=== PATIENT | male | born 1940 | race Caucasian/White ===

== ENCOUNTER 2017-09-15 05:58 | Inpatient (IN) | payer MEDICARE ==
[2017-09-15] MEDS ORDERED: FENTANYL CITRATE INJ/PF 100 MCG/2 ML AMPUL IV ONE (06:46)
--- NOTE | 2017-09-15 07:22 | RADIOLOGY REPORT (SQ) ---
EXAM DESCRIPTION: CT HEAD WITHOUT CLINICAL HISTORY: fall on eliquis COMPARISON: None available TECHNIQUE: Axial CT of the head obtained from the skull apex to the skull base without contrast. FINDINGS: No acute intracranial hemorrhage identified. No mass, mass effect, shift of the midline, abnormal extra-axial fluid collection or CT evidence of acute ischemic change identified. The ventricular system and sulcal spaces are mildly enlarged compatible with mild cerebral atrophy. Scattered areas of hypodensity throughout the supratentorial white matter are nonspecific and may be related to chronic small vessel ischemic change. Regions of encephalomalacia involving the bilateral occipital lobes compatible with remote STONE SPLITTER distribution infarctions. Encephalomalacia involving the left frontal lobe compatible with remote left MCA distribution infarction. Mucosal thickening of the paranasal sinuses. Possible minimal opacities in the mastoid air cells may represent serous or inflammatory debris. No skull fracture identified. Visualized orbits and globes are unremarkable. Atherosclerotic calcification of the intracranial internal carotid arteries. DLP: 1808.77 mGy-cm IMPRESSION: 1. No acute intracranial abnormality by CT criteria. This exam was performed according to our departmental dose-optimization program, which includes automated exposure control, adjustment of the mA and/or kV according to patient size and/or use of iterative reconstruction technique.
--- NOTE | 2017-09-15 07:39 | RADIOLOGY REPORT (SQ) ---
EXAM DESCRIPTION: HIP RIGHT AP/LATERAL CLINICAL HISTORY: fall COMPARISON: None. FINDINGS: Single frontal view of the pelvis and lateral view of the right hip. Acute mildly displaced intertrochanteric fracture of the right femur. Atherosclerotic vascular calcification. Osteopenia. Mild bilateral hip joint space narrowing. IMPRESSION: 1. Acute mildly displaced intertrochanteric fracture of the right femur.
[2017-09-15 07:48] LABS: PARTIAL THROMBOPLASTIN TIME 35.6 SEC (23.5-35.8)
[2017-09-15 07:49] LABS: ABSOLUTE BASOPHILS # (AUTO) 0.1 10^3/uL (0.0-0.2); ABSOLUTE EOSINOPHILS # (AUTO) 0.2 10^3/uL (0.0-0.6); ABSOLUTE LYMPHOCYTES (AUTO) 1.5 10^3/uL (0.5-4.7); ABSOLUTE MONOCYTES (AUTO) 0.8 10^3/uL (0.1-1.4); BASOPHILS % (AUTO) 0.9 % (0-2); EOSINOPHILS % (AUTO) 2.8 % (0-6); HEMATOCRIT 37.1 % (37.9-51.0); HEMOGLOBIN 11.9 g/dL (13.5-17.0); LYMPHOCYTES % (AUTO) 17.4 % (13-45); MEAN CORPUSCULAR HEMOGLOBIN 28.3 pg (27.0-33.4); MEAN CORPUSCULAR HGB CONC 32.1 g/dL (32.0-36.0); MEAN CORPUSCULAR VOLUME 88 fl (80-97); MONOCYTES % (AUTO) 9.1 % (3-13); PLATELET COUNT 277 10^3/uL (150-450); RED BLOOD COUNT 4.21 10^6/uL (4.35-5.55); RED CELL DISTRIBUTION WIDTH 16.5 % (11.5-14.0); SEGMENTED NEUTROPHILS % (AUTO) 69.8 % (42-78); TOTAL CELLS COUNTED % (AUTO) 100 %; WHITE BLOOD COUNT 8.6 10^3/uL (4.0-10.5)
[2017-09-15] MEDS ORDERED: NORMAL SALINE 1000 ML 1,000 ML IV ONE (07:56)
[2017-09-15 07:57] LABS: ALANINE AMINOTRANSFERASE 27 U/L (21-72); ALKALINE PHOSPHATASE 108 U/L (38-126); ANION GAP 9 (5-19); ASPARTATE AMINO TRANSFERASE 21 U/L (17-59); BILIRUBIN,DIRECT 0.4 mg/dL (0.0-0.4); BILIRUBIN,TOTAL 0.6 mg/dL (0.2-1.3); BLOOD UREA NITROGEN 44 mg/dL (7-20); CALCIUM 8.9 mg/dL (8.4-10.2); CARBON DIOXIDE 29 mmol/L (22-30); CHLORIDE 98 mmol/L (98-107); CREATINE KINASE 39 U/L (55-170); GLUCOSE 333 mg/dL (75-110); POTASSIUM 4.6 mmol/L (3.6-5.0); SODIUM 135.6 mmol/L (137-145); TOTAL PROTEIN 5.6 g/dL (6.3-8.2)
--- NOTE | 2017-09-15 08:02 | RADIOLOGY REPORT (SQ) ---
EXAM DESCRIPTION: CHEST SINGLE VIEW CLINICAL HISTORY: preop fall right hip fracture. COMPARISON: None. FINDINGS: Single frontal view of the chest. Atherosclerotic calcification aortic arch. Heart is not enlarged. Low lung volumes. No consolidation, pneumothorax, or pleural effusion. No displaced rib fractures identified. Upper abdominal soft tissues are unremarkable. IMPRESSION: 1. No acute pulmonary process identified.
--- NOTE | 2017-09-15 08:50 | EKG REPORT ---
SEVERITY:- ABNORMAL ECG - SINUS RHYTHM NONSPECIFIC INTRAVENTRICULAR CONDUCTION DELAY BORDERLINE R WAVE PROGRESSION, ANTERIOR LEADS MINIMAL ST DEPRESSION, LATERAL LEADS : Confirmed by: Lata Alvarez MD 15-Sep-2017 08:49:51
--- NOTE | 2017-09-15 08:52 | ER Document Report ---
ED General - General Chief Complaint: Hip Injury Stated Complaint: FALL/HIP INJURY Time Seen by Provider: 09/15/17 06:23 TRAVEL OUTSIDE OF THE [place] IN LAST 30 DAYS: No - HPI Patient complains to provider of: Right hip pain Notes: Patient coming in for evaluation of right hip pain. Patient had a fall today while at home. Patient complaining of right hip pain denies any chest pain abdominal pain unknown head trauma prior to after the fall. Patient resting comfortably patient according family was recently discharged from [facility] and a nursing care facility home. Patient does have a history of atrial fibrillation and is on Eliquis. - Related Data Allergies/Adverse Reactions: No Known Allergies Allergy (Unverified 09/15/17 07:54) Past Medical History - Social History Smoking Status: Unknown if Ever Smoked Family History: Reviewed & Not Pertinent Patient has suicidal ideation: No Patient has homicidal ideation: No Renal/ Medical History: Denies: Hx Peritoneal Dialysis Review of Systems - Review of Systems Constitutional: No symptoms reported EENT: No symptoms reported Cardiovascular: No symptoms reported Respiratory: No symptoms reported Gastrointestinal: No symptoms reported Genitourinary: No symptoms reported Male Genitourinary: No symptoms reported Musculoskeletal: Other - Right hip pain Skin: No symptoms reported Hematologic/Lymphatic: No symptoms reported Neurological/Psychological: No symptoms reported Physical Exam - Vital signs Vitals: Resp Pulse Ox 11 L 96 09/15/17 06:11 09/15/17 06:11 Interpretation: Normal - General General appearance: Appears well, Alert - HEENT Head: Normocephalic, Atraumatic Eyes: Normal Pupils: PERRL - Respiratory Respiratory status: No respiratory distress Chest status: Nontender Breath sounds: Normal Chest palpation: Normal - Cardiovascular Rhythm: Regular Heart sounds: Normal auscultation Murmur: No - Abdominal Inspection: Normal Distension: No distension Bowel sounds: Normal Tenderness: Nontender Organomegaly: No organomegaly - Back Back: Normal, Nontender - Extremities General upper extremity: Normal inspection, Nontender, Normal color, Normal ROM , Normal temperature General lower extremity: Other - Patient was shortening and tenderness to palpation the right greater trochanter. Pulses intact distally. Left leg infected - Neurological Neuro grossly intact: Yes Cognition: Normal Orientation: AAOx4 Roseanna Coma Scale Eye Opening: Spontaneous Roseanna Coma Scale Verbal: Oriented Roseanna Coma Scale Motor: Obeys Commands Roseanna Coma Scale Total: 15 Speech: Normal Motor strength normal: LUE, RUE, LLE, RLE Sensory: Normal - Psychological Associated symptoms: Normal affect, Normal mood - Skin Skin Temperature: Warm Skin Moisture: Dry Skin Color: Normal Course - Re-evaluation Re-evalutation: 09/15/17 15:31 Patient has a intertrochanteric fracture. CT of the head negative. Will admit to the hospital service due to underlying medical issues did discuss with orthopedics corporate relations manager. - Vital Signs Vital signs: Temp Pulse Resp BP Pulse Ox 97.6 F 15 92/64 L 92 09/15/17 06:58 09/15/17 12:06 09/15/17 12:06 09/15/17 12:06 - Laboratory Result Diagrams: 09/15/17 06:00 09/15/17 06:00 Laboratory results interpreted by me: 09/15/17 09/15/17 09/15/17 06:00 06:00 06:00 RBC 4.21 L Hgb 11.9 L Hct 37.1 L RDW 16.5 H PT 16.0 H Sodium 135.6 L BUN 44 H Creatinine 2.59 H Est GFR ( Amer) 29 L Est GFR (Non-Af Amer) 24 L Glucose 333 H POC Glucose Creatine Kinase 39 L Total Protein 5.6 L Albumin 3.0 L 09/15/17 06:52 RBC Hgb Hct RDW PT Sodium BUN Creatinine Est GFR ( Amer) Est GFR (Non-Af Amer) Glucose POC Glucose 327 H Creatine Kinase Total Protein Albumin Discharge - Discharge Clinical Impression: Anticoagulation Closed right hip fracture Qualifiers: Encounter type: initial encounter Qualified Code(s): S72.001A - Fracture of unspecified part of neck of right femur, initial encounter for closed fracture COPD (chronic obstructive pulmonary disease) Qualifiers: COPD type: unspecified COPD Qualified Code(s): J44.9 - Chronic obstructive pulmonary disease, unspecified Condition: Good Disposition: ADMITTED INPATIENT Admitting Provider: [facility] - [facility] Admitted: Telemetry
[2017-09-15] MEDS ORDERED: FENTANYL CITRATE INJ/PF 100 MCG/2 ML AMPUL IV PRN (08:56)
[2017-09-15] MEDS ORDERED: DEXTROSE 50%-WATER 25 GM/50 ML DISP.SYRIN IV PRN ×2 (09:11)
[2017-09-15] MEDS ORDERED: DEXTROSE 40% GEL 15 GM TUBE PO PRN ×2 (09:11)
[2017-09-15] MEDS ORDERED: GLUCAGON,HUMAN RECOMB 1 MG INJ IM PRN (09:11)
[2017-09-15] MEDS: MORPHINE SULFATE 10 MG/ML INJ IV PRN ×2 (10:43→14:55)
[2017-09-15] MEDS: INSULIN LISPRO 100 UNIT/ML 3 ML VIAL SUBCUT PRN ×2 (10:52→23:00)
[2017-09-15] MEDS ORDERED: CYCLOBENZAPRINE HCL 10 MG TABLET PO PRN (11:30)
--- NOTE | 2017-09-15 13:04 | HISTORY AND PHYSICAL E ---
History and Physical NAME: LUIS GODOY : 1940 AGE: 76Y ADMITTED: 09/15/2017 ROOM: ED04 PRIMARY CARE PROVIDER: Diony Thorpe M.D. CHIEF COMPLAINT: Fall and right hip pain. SUBJECTIVE: The patient is a 75-year-old, male with a past medical history of chronic kidney disease as well as atrial fibrillation. The patient presented to the emergency department from his daughter's house with a chief complaint of right hip pain after sustaining a fall. Reportedly, the patient had a fall back in May,, and subsequently did have some form of vertebral fracture associated with this. The patient has had a complicated course with this and was actually discharged from [facility] approximately 3 weeks ago due to falls and complications of this. Subsequently, the patient was discharged to [facility] and the patient was just discharged from [facility] 2 days ago. Reportedly, while the patient was at [facility], he sustained a fall and the patient was noted to be a failure to progress in therapy and the patient was not deemed rehab-able and was discharged to home. The patient's daughter is his full-time caregiver and she stated that she has an alert in place for when the patient gets out of bed, however, last night, the patient scooted to the end of the hospital bed and got up and sustained a fall, falling upon his right hip. The patient did have severe pain in this and once presented to the emergency department, the patient was found to have acute fracture. The case was discussed with Dr. Willams with Orthopedics and the patient has been referred to the hospitalist for admission and management. PAST MEDICAL HISTORY: Is remarkable for: 1. Vertebral fractures. 2. Atrial fibrillation. 3. Chronic anticoagulation. 4. Chronic obstructive pulmonary disease. PAST SURGICAL HISTORY: Includes ventral hernia repair. ALLERGIES: No known drug allergies. HOME MEDICATIONS: Include: 1. Flexeril 5 mg p.o. t.i.d. p.r.n. 2. Apixaban 5 mg p.o. b.i.d. 3. Amiodarone 200 mg p.o. daily. 4. Lipitor 80 mg p.o. daily. 5. Imdur 30 mg p.o. daily. 6. Plavix 75 mg p.o. daily. 7. Hydrocodone/acetaminophen 5/325 1 tablet p.o. q.4 hours p.r.n. 8. Lasix 40 mg p.o. b.i.d. 9. Magnesium oxide 400 mg p.o. daily. 10. Lantus 4 units subcutaneous each evening. 11. Fosinopril 2.5 mg p.o. daily. 12. Mirtazapine 7.5 mg p.o. at bedtime. 13. Potassium chloride 10 mEq p.o. daily. 14. Lidocaine 5% 1 patch topically daily. SOCIAL HISTORY: The patient currently resides at his daughter's house. Her name is Radha Torrez, who may be reached at . She is also his surrogate decision maker. The patient does have a history of tobacco use that equates approximately 60 pack years. No history of alcohol or illicit drug use. FAMILY MEDICAL HISTORY: The patient's mother is alive. She does have dementia. The patient does have a family history of coronary artery disease. The patient does have 2 children, both of which are healthy. The patient is unable to elaborate on his siblings at this time. REVIEW OF SYSTEMS: CONSTITUTIONAL: The patient denies any fevers, chills. No dizziness or loss of appetite. Does admit to lower extremity weakness, at times. INTEGUMENTARY: The patient denies any diaphoresis, rashes or bruising. HEENT: Denies any vision change, hearing loss, nasal drainage or sore throat. No headache. CARDIOVASCULAR SYSTEM: The patient denies any chest pain, edema, or heart palpitations. RESPIRATORY: Denies any shortness of breath, cough, sputum production, or hemoptysis. GASTROINTESTINAL: Denies any nausea, vomiting, diarrhea, abdominal pain, bloating, hematemesis, constipation, melena. No hematochezia. GENITOURINARY: Denies any hematuria, pyuria, or dysuria. MUSCULOSKELETAL: The patient does have chronic back pain and acute, bilateral hip pain. NEUROLOGICAL: No seizures, tremors, loss of consciousness. HEMATOLOGICAL: Denies any edgardo bleeding, easy bruising. ENDOCRINE: Denies any recent weight changes. PSYCHIATRIC: Denies any suicidal or homicidal ideation. The rest of the review of the other organ systems is negative. PHYSICAL EXAMINATION: GENERAL: On examination, the patient is a frail, chronically ill-appearing, 76-year-old male who is awake, alert and oriented to person, place, time, and situation. He is verbal, conversational, and ambulatory. He does not appear to be in any acute distress. VITAL SIGNS: As follows: Temperature is 97.6, pulse 62, respirations 14, blood pressure is 128/63. Oxygen saturation 94% on room air. SKIN: Warm and dry. No rash. He is not diaphoretic. HEENT: Pupils equal, round, reactive to light and accommodation. Conjunctivae pink. Sclera shows no icterus. No mouth lesions. Tongue is midline. NECK: Supple. No JVD. No palpable lymphadenopathy or thyromegaly. CARDIOVASCULAR SYSTEM: Heart is regular. There is no murmur or rub. CHEST: Clear, symmetrical, unlabored. ABDOMEN: Soft, nontender, nondistended. Bowel sounds are present. No palpable organomegaly. BACK: No CVA tenderness or sacral edema. EXTREMITIES: No clubbing, cyanosis, or edema. PSYCHIATRIC: Appropriate affect. Pleasant mood. DIAGNOSTICS: Lab values are as follows: Hematology was obtained on 09/15/2017. WBCs are 8.6, hemoglobin is 11.9, hematocrit is 37.1, platelet count is 277,000. Coagulation obtained on 09/15/2017: PT 20.0, INR 1.2. Chemistry obtained on 09/15/2017: Sodium 135, potassium 4.2, chloride 108, carbon dioxide 29, BUN 44, creatinine 2.59, glucose 335, calcium 8.9. Bilirubin 0.6, AST 21, ALT 27, alkaline phosphatase 108. CK 39, total protein 5.6, albumin 3.0. Hip x-ray obtained on 09/15/2017 reveals acute, mildly displaced, intratrochanteric fracture of the right femur. Head CT obtained on 09/15/2017 reveals no intracranial abnormality. Chest x-ray obtained on 09/15/2017 reveals no acute cardiopulmonary process. IMPRESSION AND PLAN: 1. Closed right hip fracture. Will consult Dr. Willams with Orthopedics. Will hold the patient's anticoagulation as well as aspirin for now and follow. 2. Paroxysmal atrial fibrillation. Patient currently in sinus rhythm. Will continue the patient's amiodarone as well as beta charlotte and follow. 3. Chronic kidney disease, most likely stage 3. It appears the patient is probably around baseline, not exactly certain. Given that I do not have labs for comparison, we will obtain labs from [facility] and follow. 4. Diabetes mellitus type 2. Will place the patient on sliding-scale coverage. Once the patient resumes diet, will start basal dose of insulin, as well. Follow. 5. Deep vein thrombosis prophylaxis. In the interim, will cover the patient with subcutaneous heparin. Do appreciate Orthopedics input with this. DISPOSITION: The patient is a DO NOT RESUSCITATE, DO NOT INTUBATE, as the patient and daughter have both expressed a desire for a natural . Did discuss goals of care and they would like all measures done, however, if the patient should arrest, they would want him to have a natural . The patient will be admitted to Inpatient Telemetry in stable condition as the patient's expected length of stay should surpass 2 midnights. TIME SPENT: On this admission, including assessment, plan, physical examination, patient education, review of records and family meeting, is 45 minutes. DICTATING PHYSICIAN: MEGGAN RIVERA NP [id number] PHY#: [id number] ID: [id number] JOB#: [id number] ACCT: [id number] cc:GARY RAMIREZ M.D. > MTDD
[2017-09-15] MEDS: HYDROCODONE/ACETAMINOPHEN 5-325 MG TABLET PO PRN ×2 (13:31→23:48)
[2017-09-15] MEDS: METOPROLOL SUCCINATE 25 MG TAB.SR.24H PO SCH (13:33)
[2017-09-15] MEDS: AMIODARONE HCL 200 MG TABLET PO SCH (13:33)
[2017-09-15] MEDS ORDERED: HEPARIN SOD (PORCINE) 5,000 UNIT/ML 1 ML SYRINGE SUBCUT SCH (14:00)
[2017-09-15] MEDS ORDERED: HYDROMORPHONE HCL INJ/PF 2 MG/ML AMPULE IV PRN (16:45)
[2017-09-15] MEDS ORDERED: LIDOCAINE 2% URO-JET 5 ML KIT MM PRN (18:23)
[2017-09-15] MEDS: FUROSEMIDE 40 MG TABLET PO SCH (19:28)
[2017-09-15] MEDS: INSULIN GLARGINE,HUM.REC.ANLOG 300 UNIT/3 ML INSULN.PEN SUBCUT SCH (19:29)
[2017-09-15] MEDS: MIRTAZAPINE 15 MG TABLET PO SCH (22:33)
[2017-09-16] MEDS ORDERED: NORMAL SALINE 1000 ML 1,000 ML IV PRN
[2017-09-16] MEDS ORDERED: HYDROMORPHONE HCL INJ/PF 2 MG/ML AMPULE IV PRN (00:54)
[2017-09-16 05:19] LABS: HEMOGLOBIN 11.4 g/dL (13.5-17.0); MEAN CORPUSCULAR HGB CONC 31.6 g/dL (32.0-36.0); MEAN CORPUSCULAR VOLUME 89 fl (80-97); PLATELET COUNT 307 10^3/uL (150-450); RED BLOOD COUNT 4.06 10^6/uL (4.35-5.55); RED CELL DISTRIBUTION WIDTH 16.1 % (11.5-14.0); WHITE BLOOD COUNT 14.5 10^3/uL (4.0-10.5)
[2017-09-16 05:48] LABS: ANION GAP 13 (5-19); BLOOD UREA NITROGEN 47 mg/dL (7-20); CARBON DIOXIDE 27 mmol/L (22-30); CHLORIDE 98 mmol/L (98-107); GLUCOSE 260 mg/dL (75-110); POTASSIUM 4.6 mmol/L (3.6-5.0); SODIUM 137.6 mmol/L (137-145)
[2017-09-16] MEDS: LISINOPRIL 5 MG TABLET PO SCH (09:59)
[2017-09-16] MEDS ORDERED: (PENDING PHARMACY ID) (Lisinopril [Prinivil 2.5 Mg Tablet] 2.5 MG) PO SCH (10:00)
[2017-09-16] MEDS ORDERED: (PENDING PHARMACY ID) (Potassium Chloride [Klor-Con M10] 10 MEQ) PO SCH (10:00)
[2017-09-16] MEDS: FUROSEMIDE 40 MG TABLET PO SCH ×2 (10:01→22:07)
[2017-09-16] MEDS: INSULIN LISPRO 100 UNIT/ML 3 ML VIAL SUBCUT PRN ×3 (10:01→22:08)
[2017-09-16] MEDS: ISOSORBIDE MONONITRATE 30 MG TAB.ER.24H PO SCH (10:02)
[2017-09-16] MEDS: CYCLOBENZAPRINE HCL 10 MG TABLET PO PRN (10:07)
[2017-09-16] MEDS: MAGNESIUM OXIDE 400 MG TABLET PO SCH (10:08)
[2017-09-16] MEDS: POTASSIUM CHLORIDE 10 MEQ TABLET.SA PO SCH (10:08)
[2017-09-16] MEDS: LIDOCAINE 5% (700 MG) TRANSDERMAL ADH..PATCH TP SCH (13:02)
[2017-09-16] MEDS: MORPHINE SULFATE 10 MG/ML INJ IV PRN (13:10)
--- NOTE | 2017-09-16 13:10 | PDOC CONSULTATION ---
Consultation Consult Date: 09/16/17 Attending physician:: MEGGAN RIVERA Consult reason:: Preop cardiovascular clearance History of Present Illness Admission Date/PCP: 09/15/17 09:43 LINNEA CONTRERAS MD Patient complains of: Right hip pain History of Present Illness: LUIS GODOY is a 76 year old male, who apparently fell and broke his right hip. Patient has known history of coronary artery disease having been evaluated recently at [facility]. Patient was transferred there after sustaining a myocardial infarction on August 08. Subsequently he had a 2D echo and heart catheterization. Patient was felt not a candidate for any coronary intervention. Cardiac catheterization revealed a 60% distal left main blockage, 70-80% proximal LAD blockage and 100% blockage of the right coronary artery. A 2D echo had shown a EF of about 20% without any significant valvular abnormalities but cardiac cath had shown a EF of 40% but echo EF is multiplanar rather than a year from cath. Patient currently not having any chest pains and is noted to be in sinus rhythm without any significant ST-T wave changes. Past Medical History Cardiac Medical History: Reports: Coronary Artery Disease, Myocardial Infarction , Hypertension Past Surgical History Past Surgical History: Reports: Cardiac Catheterization Social History Information Source: Relative Smoking Status: Unknown if Ever Smoked Frequency of Alcohol Use: None Hx Recreational Drug Use: No Drugs: None Hx Prescription Drug Abuse: No - Advance Directive Resuscitation Status: Do Not Resuscitate Surrogate healthcare decision maker:: Patient's son is the surrogate decision-maker Family History Family History: Reviewed & Not Pertinent Parental Family History Reviewed: Yes Children Family History Reviewed: Yes Sibling(s) Family History Reviewed.: Yes Medication/Allergy Home Medications: Amiodarone HCl [Cordarone 200 mg Tablet] 200 mg PO DAILY 09/15/17 Apixaban [Eliquis 5 mg Tablet] 5 mg PO BID 09/15/17 Atorvastatin Calcium [Lipitor 80 mg Tablet] 80 mg PO DAILY 09/15/17 Cyclobenzaprine HCl [Flexeril 10 mg Tablet] 5 mg PO TIDP PRN 09/15/17 Furosemide [Lasix 40 mg Tablet] 40 mg PO BID 09/15/17 Hydrocodone Bit/Acetaminophen [Hydrocodon-Acetaminophen 5-325] 1 each PO Q4HP PRN 09/15/17 Insulin Glargine,Hum.rec.anlog [Lantus Solostar] 4 unit SQ QPM 09/15/17 Isosorbide Mononitrate [Imdur 30 mg Tablet.er] 30 mg PO DAILY 09/15/17 Lidocaine [Lidoderm 5% (700 mg) Transdermal Patch] 1 patch TP DAILY 09/15/17 Lisinopril [Prinivil 2.5 mg Tablet] 2.5 mg PO DAILY 09/15/17 Magnesium Oxide [Mag-Ox 400 mg Tablet] 400 mg PO DAILY 09/15/17 Metoprolol Succinate [Toprol Xl 25 mg Tab.sr] 75 mg PO DAILY 09/15/17 Mirtazapine 7.5 mg PO QHS 09/15/17 Potassium Chloride [Klor-Con M10] 10 meq PO DAILY 09/15/17 Allergies/Adverse Reactions: No Known Allergies Allergy (Unverified 09/15/17 07:54) Review of Systems Review of Systems: Please see history of present illness and past medical history as wall. Constitutional: No fever or chills reported. Head : No recent chronic headaches, recent head injury. Eyes: No recent eye pain, diplopia, redness, discharge, acute visual changes. Ears: No recent chronic ear pain, acute hearing loss, ear discharge. Oral cavity: No recent ulcerations, bleeding, oral cavity discomfort. Neck: No recent acute neck pain reported. Hematologic: No recent easy bruising or bleeding or hematologic malignancy reported. Lymphatic: No recent lymphatic malignancy, chronic lymphadenopathy reported yet Cardiovascular system review: See history of present illness. Respiratory system review: No recent chronic cough, hemoptysis, blood clots in the lungs reported. Gastrointestinal system review: Negative for any recent acute or chronic abdominal pain, hematemesis, melena, recent change in bowel habits. Genitourinary system review: No recent acute or chronic hematuria, flank pain, UTI etc. reported. Skin system review: Negative for any recent abnormal bruising, no rash, no pruritus reported. Neurologic: No prior history of strokes, mini strokes, seizure disorder. Psychologic: No history of major psychosis or major depression reported. Musculoskeletal: Admitted with right hip fracture. Patient has marked general debility.. Endocrine: No recent polyuria, polydipsia, recent heat or cold intolerance. Physical Exam Vital Signs: Temp Pulse Resp BP Pulse Ox 97.6 F 81 16 148/58 H 94 09/16/17 08:33 09/16/17 08:33 09/16/17 08:33 09/16/17 08:33 09/16/17 11:41 Pulse Oximeter Continuous Start: 09/16/17 00: 30 Freq: RTQ4 Status: Active Document 09/16/17 11:41 TPO (Rec: 09/16/17 11:41 TPO [email or web address]) Pulse Oximetry Assessment Oxygen Saturation (92-100) 94 Oxygen Flow Rate (L/min) 6 Oxygen Delivery Method Simple Mask Equipment Usage Equipment in Use Continuous SpO2 Machine # 2 Intake & Output 09/15/17 09/16/17 09/17/17 06:59 06:59 06:59 Intake Total 100 Output Total 1000 Balance -900 Weight 67.676 kg Exam: GENERAL: Patient noted to be thin built, somewhat in pain HEAD: Atraumatic, normocephalic. EYES: Pupils equal round and reactive to light, extraocular movements intact, sclera anicteric, conjunctiva are normal. ENT: TMs normal, nares patent, oropharynx clear without exudates. Moist mucous membranes. No oral ulcerations or bleeding gums noted NECK: supple without lymphadenopathy. Trachea is central. No cervical or axillary lymphadenopathy noted. Carotids are 2+, JVD WNL LUNGS: Respiration seems nonlabored, no significant accessory muscle action noted. Breath sounds clear to auscultation bilaterally and equal noted. No wheezes rales or rhonchi noted. No significant dullness noted on percussion. CHEST: Palpation of the chest wall shows no significant chest wall tenderness. No other significant abnormalities noted. HEART: [place] [employer]OR, No PSH, 1/6 MINNIE aortic area, 1/6 nicolas systolic murmur mitral area, no rubs, no gallops. ABDOMEN: Soft, no significant tenderness appreciated, normoactive bowel sounds. No guarding, no rebound. No rigidity noted . No masses appreciated. EXTREMITIES: Pedal pulses are 1-2+, no calf tenderness noted. No clubbing or cyanosis.trace pedal edema noted NEUROLOGICAL: Focused neurological exam showed to be combative and not able to participate in exam.. PSYCH: Patient noted to be in pain and somewhat combative and not able to participate in this exam.. SKIN: No significant ecchymosis, rash, ulcerations or signs of pruritus noted. MUSCULOSKELETAL EXAM: Right hip fracture findings noted. No other acute joint swelling noted.. Results Laboratory Results: 09/16/17 04:28 09/16/17 04:28 09/16/17 09/16/17 09/16/17 04:28 04:28 04:28 WBC 14.5 H RBC 4.06 L Hgb 11.4 L Hct 36.0 L MCV 89 MCH 28.0 MCHC 31.6 L RDW 16.1 H Plt Count 307 Sodium 137.6 Potassium 4.6 Chloride 98 Carbon Dioxide 27 Anion Gap 13 BUN 47 H Creatinine 2.15 H Est GFR ( Amer) 36 L Est GFR (Non-Af Amer) 30 L Glucose 260 H Calcium 9.0 Blood Type O POSITIVE Antibody Screen NEGATIVE EKG Comments: Shows sinus rhythm, no acute ST-T wave changes noted. Impressions: Hip/Pelvis X-Ray 09/15/17 00:00 IMPRESSION: 1. Acute mildly displaced intertrochanteric fracture of the right femur. Head CT 09/15/17 06:46 IMPRESSION: 1. No acute intracranial abnormality by CT criteria. This exam was performed according to our departmental dose-optimization program, which includes automated exposure control, adjustment of the mA and/or kV according to patient size and/or use of iterative reconstruction technique. Chest X-Ray 09/15/17 07:38 IMPRESSION: 1. No acute pulmonary process identified. Assessment & Plan - Diagnosis (1) Coronary artery disease Qualifiers: Coronary Disease-Associated Artery/Lesion type: [place] artery [place] vs. transplanted heart: [place] heart Associated angina: angina presence unspecified Qualified Code(s): I25.10 - Atherosclerotic heart disease of [place] coronary artery without angina pectoris Is this a current diagnosis for this admission?: Yes (2) Cardiomyopathy Qualifiers: Cardiomyopathy type: ischemic Qualified Code(s): I25.5 - Ischemic cardiomyopathy Is this a current diagnosis for this admission?: Yes (3) COPD (chronic obstructive pulmonary disease) Qualifiers: COPD type: unspecified COPD Qualified Code(s): J44.9 - Chronic obstructive pulmonary disease, unspecified Is this a current diagnosis for this admission?: Yes (4) Closed right hip fracture Qualifiers: Encounter type: initial encounter Qualified Code(s): S72.001A - Fracture of unspecified part of neck of right femur, initial encounter for closed fracture Is this a current diagnosis for this admission?: Yes - Notes Notes: Preop cardiovascular evaluation: Patient will be considered high risk. It seems patient has been turned down by the pile driver operator barge mounted at tertiary care center for any corrective surgery for his CAD. Patient has severe CAD and also severe LV systolic dysfunction. Currently however does not seem to have any acute EKG changes nor in CHF. Therefore surgeons and anesthesia can proceed however there is marked increased risk of decompensation postop and this would need to be explained to the family member. We do not have all the cardiac support that we need in this institution but will be happy to help in noninvasive way. Coronary artery disease: Patient seems to be on a good regimen. Have added Ranexa. Continue all current cardiac meds. May substitute intravenous meds if needed. COPD: Currently is stable continue oxygen supplementation. Recommend DVT prophylaxis, pulmonary toilet etc. We will be happy to discuss options with surgeons and anesthesiologist as well as hospitalist involved. - Time Time Spent: 30 to 50 Minutes Medications reviewed and adjusted accordingly: Yes
[2017-09-16] MEDS: METOPROLOL SUCCINATE 25 MG TAB.SR.24H PO SCH (13:12)
[2017-09-16] MEDS: AMIODARONE HCL 200 MG TABLET PO SCH (13:13)
[2017-09-16] MEDS ORDERED: RANOLAZINE 500 MG TAB.SR.12H PO ONE (14:00)
--- NOTE | 2017-09-16 14:12 | PROGRESS NOTE E ---
Progress Note NAME: LUIS GODOY : 1940 AGE: 76Y DATE: 09/16/2017 ROOM: 409 SUBJECTIVE: The patient is lying in bed. The patient's visit was actually lengthy today. The patient has had some confusion with opiates as well as with what appears to be hospital psychosis, which is distressing understandably to the son. I was notified by Dr. Chun of Anesthesia that there was concern regarding the patient's cardiac function and had recommended echocardiogram. I did discuss this with her that the echocardiogram as well as the cath report from 07/2017 from [facility]. It does appear that the patient has triple vessel disease as well as completely occluded RCA. This was concerning. Therefore, I called and discussed the case with the head of marketing adometry, Dr. Yanes, who did not describe these as critical lesions, stating that the patient was at no higher risk of a procedure at [facility] than he would be for here, and the patient does not appear to be a candidate for any further intervention at this time including revascularization given his acute hip fracture, and recommended proceeding with the procedure. I did call and communicate this with Dr. Chun. Additionally, the patient appears to have collateral flow around the RCA. I did consult Dr. Gunter with Cardiology to help in the postoperative management from a cardiac status. In discussion with Dr. Gunter, does recommend the patient to be made possibly comfort measures after his hip repair. I discussed the patient's risk with both the patient and his son. He is aware that the patient is a very high risk for procedure; however, he is not a candidate for any further cardiac intervention at this time given his overall poor rehab chronicity, as he was just discharged from acute rehab and broke his hip. The patient does not voice any specific concerns at this time other than his pain, which is priority. REVIEW OF SYSTEMS: Rest of review of systems is negative. MEDICATIONS: Medications have been reviewed. OBJECTIVE: GENERAL: The patient is a 76-year-old male who is awake, alert. He is oriented to place but not fully oriented to situation. He is a little confused but definitely oriented to his family. He does not appear to be distressed. VITAL SIGNS ARE FOLLOWS: Temperature is 97.6. Pulse 86. Respirations 14. Blood pressure is 116/63. Oxygen saturation is 90% on 5.5 L nasal cannula. SKIN: Pale. Dry. No rash. He is not diaphoretic. HEENT: Pupils equal, round and reactive to light and accommodation. Conjunctivae are pink. NECK: There is no evidence of JVP. CARDIOVASCULAR SYSTEM: Heart is regular. There is no rub. CHEST: Diminished, symmetrical, unlabored. ABDOMEN: Soft. Nontender. Nondistended. BACK: No CVA tenderness or sacral edema. EXTREMITIES: No clubbing, cyanosis, edema. PSYCHIATRIC: The patient does appear to be in pain. DIAGNOSTICS: Lab values are as follows. Hematology obtained on 09/16/2017: WBCs are 14.5; hemoglobin is 11.4; hematocrit is 36.0; platelet count of 307,000. Chemistry obtained on 09/16/2017: Sodium is 136, potassium 4.6, chloride is 98, carbon dioxide 27. BUN 47, creatinine is 2.15, glucose 260. Calcium is 9.0. IMPRESSION AND PLAN: 1. CLOSED RIGHT HIP FRACTURE. The patient has been seen by Dr. Willams, and the case has been discussed with Dr. Chun of Anesthesia, who has graciously agreed to come speak with the patient and family. Will proceed with surgery when cleared by Anesthesia. 2. PAROXYSMAL ATRIAL FIBRILLATION. The patient is in sinus rhythm. Continue on amiodarone as well as his beta [place]. Follow. 3. CHRONIC KIDNEY DISEASE STAGE 3. The patient's creatinine does appear to be about baseline. I do have labs for comparison from [facility]. 4. DIABETES MELLITUS TYPE 2. Will continue sliding-scale coverage. Once the patient's diet resumes, will start a basal dose of insulin and follow. 5. CORONARY ARTERY DISEASE. The patient does have an ischemic cardiomyopathy with an estimated EF between 20% and 40%, as it is 20% by echo but 40% by stress test. According to Dr. Yanes, these lesions do not appear to be critical, and the patient does have collateral RCA flow. Do appreciate doctor's input on this. I have made the family aware that the patient is at [id number] risk for complication, and his risk of mortality is high regardless due to recent hip fracture. DISPOSITION: The patient is a DO NOT RESUSCITATE, DO NOT INTUBATE as both the patient and his daughter expressed desires for natural . Pending patient's symptomatology and diagnostic findings, will reevaluate in the a.m. TIME SPENT: Time spent on this followup including assessment, plan, physical examination, patient education, review of records, family meeting is 60 minutes. DICTATING PHYSICIAN: MEGGAN RIVERA NP [id number] PHY#: [id number] ID: [id number] JOB#: [id number] ACCT: [id number] cc: > MTDD
[2017-09-16] MEDS ORDERED: CEFAZOLIN INJ 1 GM VIAL ONE (17:09)
[2017-09-16] MEDS ORDERED: PROPOFOL INJ 200 MG/20 ML VIAL IV ONE (18:03)
[2017-09-16] MEDS ORDERED: FENTANYL CITRATE INJ/PF 100 MCG/2 ML AMPUL ONE (18:03)
[2017-09-16] MEDS ORDERED: MIDAZOLAM 2 MG/2 ML INJ ONE (18:03)
[2017-09-16] MEDS ORDERED: BUPIVACAINE HCL 0.5 % INJ/PF 30 ML SDV ONE ×2 (18:19→18:47)
[2017-09-16] MEDS ORDERED: LIDOCAINE 1% INJ-PF (10 MG/ML) 30 ML SDV ONE ×2 (18:19→18:47)
[2017-09-16] MEDS ORDERED: DIPHENHYDRAMINE HCL 50 MG/ML VIAL IV PRN (18:49)
[2017-09-16] MEDS ORDERED: FENTANYL CITRATE INJ/PF 100 MCG/2 ML AMPUL IV PRN (18:49)
--- NOTE | 2017-09-16 19:16 | PDOC CONSULTATION ---
Consultation Consult Date: 09/15/17 Consult reason:: Right hip fracture History of Present Illness Admission Date/PCP: 09/15/17 09:43 LINNEA CONTRERAS MD Patient complains of: Right hip pain status post fall History of Present Illness: 76-year-old gentleman status post fall on . Patient had inability to weight-bear and had gross deformity of the right lower extremity with some shortening and external rotation. Patient was brought by EMS to the hospital for evaluation and x-ray showed the patient had a displaced intertrochanteric hip fracture on the right side. Patient has baseline dementia and part of the history was given by the daughter. Patient has significant comorbidities and is being admitted to hospitalist service for management. Patient denies any numbness or tingling or paresthesias. Denies any previous surgeries or traumas. Denies any other extremity injury. Complains of right groin pain and sharp pain and dull pain. Pain with attempted range of motion. Past Medical History Cardiac Medical History: Reports: Coronary Artery Disease, Myocardial Infarction , Hypertension Past Surgical History Past Surgical History: Reports: Cardiac Catheterization Social History Smoking Status: Unknown if Ever Smoked Frequency of Alcohol Use: None Hx Recreational Drug Use: No Drugs: None Hx Prescription Drug Abuse: No - Advance Directive Resuscitation Status: Do Not Resuscitate Family History Family History: Reviewed & Not Pertinent Parental Family History Reviewed: No Children Family History Reviewed: No Sibling(s) Family History Reviewed.: No Medication/Allergy Home Medications: Amiodarone HCl [Cordarone 200 mg Tablet] 200 mg PO DAILY 09/15/17 Apixaban [Eliquis 5 mg Tablet] 5 mg PO BID 09/15/17 Atorvastatin Calcium [Lipitor 80 mg Tablet] 80 mg PO DAILY 09/15/17 Cyclobenzaprine HCl [Flexeril 10 mg Tablet] 5 mg PO TIDP PRN 09/15/17 Furosemide [Lasix 40 mg Tablet] 40 mg PO BID 09/15/17 Hydrocodone Bit/Acetaminophen [Hydrocodon-Acetaminophen 5-325] 1 each PO Q4HP PRN 09/15/17 Insulin Glargine,Hum.rec.anlog [Lantus Solostar] 4 unit SQ QPM 09/15/17 Isosorbide Mononitrate [Imdur 30 mg Tablet.er] 30 mg PO DAILY 09/15/17 Lidocaine [Lidoderm 5% (700 mg) Transdermal Patch] 1 patch TP DAILY 09/15/17 Lisinopril [Prinivil 2.5 mg Tablet] 2.5 mg PO DAILY 09/15/17 Magnesium Oxide [Mag-Ox 400 mg Tablet] 400 mg PO DAILY 09/15/17 Metoprolol Succinate [Toprol Xl 25 mg Tab.sr] 75 mg PO DAILY 09/15/17 Mirtazapine 7.5 mg PO QHS 09/15/17 Potassium Chloride [Klor-Con M10] 10 meq PO DAILY 09/15/17 Allergies/Adverse Reactions: No Known Allergies Allergy (Unverified 09/15/17 07:54) Review of Systems ROS unobtainable: Due to mental status Physical Exam Vital Signs: Temp Pulse Resp BP Pulse Ox 36.9 C 85 18 121/48 L 94 09/16/17 16:59 09/16/17 16:59 09/16/17 16:59 09/16/17 16:59 09/16/17 17:32 Pulse Oximeter Continuous Start: 09/16/17 00: 30 Freq: RTQ4 Status: Active Document 09/16/17 17:32 TPO (Rec: 09/16/17 17:33 TPO [email or web address]) Pulse Oximetry Assessment Oxygen Saturation (92-100) 94 Oxygen Flow Rate (L/min) 5 Oxygen Delivery Method Nasal Cannula Equipment Usage Equipment in Use Continuous SpO2 Machine # 2 Intake & Output 09/15/17 09/16/17 09/17/17 06:59 06:59 06:59 Intake Total 100 Output Total 1000 400 Balance -900 -400 Weight 67.676 kg General appearance: PRESENT: no acute distress Eye exam: PRESENT: EOMI, PERRLA Ear exam: PRESENT: normal external ear exam Mouth exam: PRESENT: neck supple Neck exam: ABSENT: lymphadenopathy, thyromegaly Respiratory exam: PRESENT: symmetrical, unlabored. ABSENT: accessory muscle use , tachypnea Pulses: PRESENT: normal dorsalis pedis pul Vascular exam: PRESENT: normal capillary refill GI/Abdominal exam: PRESENT: soft. ABSENT: distended, organolmegaly, tenderness Musculoskeletal exam: PRESENT: deformity - Right lower extremity, shortening and externally rotated extremity. Inability to do range of motion second to acute brain pain. Neurological exam: PRESENT: altered, oriented to person Psychiatric exam: PRESENT: appropriate affect, normal mood Results Laboratory Results: 09/16/17 04:28 09/16/17 04:28 09/16/17 09/16/17 09/16/17 04:28 04:28 04:28 WBC 14.5 H RBC 4.06 L Hgb 11.4 L Hct 36.0 L MCV 89 MCH 28.0 MCHC 31.6 L RDW 16.1 H Plt Count 307 Sodium 137.6 Potassium 4.6 Chloride 98 Carbon Dioxide 27 Anion Gap 13 BUN 47 H Creatinine 2.15 H Est GFR ( Amer) 36 L Est GFR (Non-Af Amer) 30 L Glucose 260 H Calcium 9.0 Blood Type O POSITIVE Antibody Screen NEGATIVE Impressions: Hip/Pelvis X-Ray 09/15/17 00:00 IMPRESSION: 1. Acute mildly displaced intertrochanteric fracture of the right femur. Head CT 09/15/17 06:46 IMPRESSION: 1. No acute intracranial abnormality by CT criteria. This exam was performed according to our departmental dose-optimization program, which includes automated exposure control, adjustment of the mA and/or kV according to patient size and/or use of iterative reconstruction technique. Chest X-Ray 09/15/17 07:38 IMPRESSION: 1. No acute pulmonary process identified. Status: Image reviewed by me Assessment & Plan - Diagnosis (1) Closed right hip fracture Qualifiers: Encounter type: initial encounter Qualified Code(s): S72.001A - Fracture of unspecified part of neck of right femur, initial encounter for closed fracture Is this a current diagnosis for this admission?: Yes - Plan Summary Plan Summary: 76-year-old gentleman with displaced right intertrochanteric hip fracture. She will be admitted to medicine. Will require clearance. Meantime bedrest and pain control. Discussed with the daughter and family member that the patient would best be served with cephalo-medullary nailing of his right intertrochanteric hip fracture to help him be mobile and ambulatory again. Risk and benefits were discussed and the patient agreed to consent. We will plan to proceed with surgery in the next 24-48 hours.
--- NOTE | 2017-09-16 19:33 | Operative Report ---
Operative Report DATE OF SURGERY: 09/16/17 PREOPERATIVE DIAGNOSIS: Right intertrochanteric hip fracture POSTOPERATIVE DIAGNOSIS: Same OPERATION: Right hip cephalo-medullary nailing SURGEON: EDENILSON LAU ANESTHESIA: GA TISSUE REMOVED OR ALTERED: none COMPLICATIONS: None ESTIMATED BLOOD LOSS: 50 mL INTRAOPERATIVE FINDINGS: As above PROCEDURE: Patient was seen and evaluated in the preoperative holding area. The right lower extremity was initialized and marked. Patient received 1 g Ancef IV for bacterial prophylaxis. Patient was taken back to the operative room where transferred operative table. Patient was placed under sedation and local anesthetic. Once adequate anesthetized he was carefully placed onto the hip positioner the nonoperative lower extremity and bilateral upper extremities were carefully padded and the peroneal nerve was padded and on the nonoperative extremity. The operative extremity was placed in a traction along with adduction and internal rotation. A surgical team debriefing was performed ensuring all instrumentation was available, the surgical procedure was discussed with possible concerns reviewed. A timeout was done identifying correct patient, procedure and extremity everyone in attendance agree with this and verbalized no concerns. Reduction maneuver with the use of the hip traction table were done and C-arm fluoroscopy was used to confirm optimal reduction of the intertrochanteric fracture. Once this was confirmed the lower extremity was prepped with chlor prep and draped in a sterile fashion. At this point a small skin incision was made proximal to the greater trochanter. The guidewire was placed onto the tip of the trochanter advanced down to the level of the lesser trochanter. AP and lateral fluoroscopy was used to confirm appropriate placement of the guidewire. The skin incision was then extended and the underlying fascia opened up carefully to the tip of the greater trochanter. The entry reamer was then used and advanced to the level of the lesser trochanter. At this point [place] short gamma nail was opened up and placed onto the aiming arm and advanced down the shaft of the femur. AP and lateral fluoroscopy was then used to confirm appropriate placement of the nail. Then turned my attention to the compression screw fixation in the femoral head. The trochars were advanced to the skin, a skin incision was made, careful dissection down to the fascia to the lateral femoral cortex was then partaken. The guidewire was then used and placed in the center center position with the tip apex distance less than 25 mm. Once this position was obtained the size of the compression screw was measured. AP and lateral fluoroscopy used to confirm appropriate placement of our guide wire. The step reamer was used to drill up through the femoral neck and head. I then carefully advanced the compression screw into position. AP and lateral fluoroscopy was done to confirm appropriate placement of the compression screw this was then locked into position proximally. The compression screw was then disengaged from its mounting device and the guidewire was removed. Lastly proceeded with locking of the nail distally. Using the aiming arm the trochars were advanced to the skin, a skin incision was made. Careful dissection done with a hemostat to the lateral cortex of the femur. I then drilled the near and far cortices. Measured the appropriate sized distal locking screw and secured it into position. At this point AP/lateral and oblique views of the proximal and distal aspect of the nail were taken confirming appropriate placement of the compression screw, distal locking screw and intramedullary nail. Once this was confirmed I proceeded with copious irrigation of the proximal and distal wounds. The deep tissues were closed with 0 Vicryl suture, subcutaneous tissues were closed with 3-0 Monocryl suture. The skin was closed a running 3-0 subcuticular Monocryl suture and reinforced with Dermabond & Steri-Strips. A dressing was placed. Sponge counts, instrument counts and needle counts were correct. Patient was then transferred from the operating room table to the operating room stretcher. The was no intraoperative complications patient tolerated procedure well was stable to PACU. Implants used: [place] 11 x 180 mm 125 Short Gamma Nail with a 100 mm compression screw 40 mm length locking screw Postoperative plan: Patient will begin physical therapy on postop day #1 and resume the Eliquis.
[2017-09-16] MEDS ORDERED: CEFAZOLIN 1 GM/D5W RTU 1 GM/50 ML RTUPB IV PRN (20:09)
[2017-09-16] MEDS ORDERED: RINGERS SOLUTION,LACTATED 1,000 ML IV PRN (20:22)
[2017-09-16] MEDS: RANOLAZINE 500 MG TAB.SR.12H PO SCH (22:07)
[2017-09-16] MEDS: INSULIN GLARGINE,HUM.REC.ANLOG 300 UNIT/3 ML INSULN.PEN SUBCUT SCH (22:08)
[2017-09-16] MEDS: ATORVASTATIN CALCIUM 80 MG TABLET PO SCH (22:08)
[2017-09-16] MEDS: MIRTAZAPINE 15 MG TABLET PO SCH (22:11)
[2017-09-17] MEDS: CEFAZOLIN 1 GM/D5W RTU 1 GM/50 ML RTUPB IV SCH ×2 (06:42→14:38)
[2017-09-17 06:57] LABS: ANION GAP 12 (5-19); BLOOD UREA NITROGEN 47 mg/dL (7-20); CALCIUM 8.5 mg/dL (8.4-10.2); CARBON DIOXIDE 23 mmol/L (22-30); CHLORIDE 104 mmol/L (98-107); GLUCOSE 237 mg/dL (75-110); POTASSIUM 4.7 mmol/L (3.6-5.0); SODIUM 139.3 mmol/L (137-145)
[2017-09-17 07:53] LABS: HEMATOCRIT 28.4 % (37.9-51.0); MEAN CORPUSCULAR HEMOGLOBIN 28.1 pg (27.0-33.4); MEAN CORPUSCULAR HGB CONC 32.1 g/dL (32.0-36.0); MEAN CORPUSCULAR VOLUME 88 fl (80-97); PLATELET COUNT 205 10^3/uL (150-450); RED BLOOD COUNT 3.24 10^6/uL (4.35-5.55); RED CELL DISTRIBUTION WIDTH 16.4 % (11.5-14.0); WHITE BLOOD COUNT 12.4 10^3/uL (4.0-10.5)
[2017-09-17 08:02] LABS: HEMOGLOBIN 9.1 g/dL (13.5-17.0)
--- NOTE | 2017-09-17 08:59 | RADIOLOGY REPORT (SQ) ---
EXAM DESCRIPTION: NO CHG FLUORO; HIP RIGHT AP/LATERAL COMPLETED DATE/TIME: 09/16/2017 7:39 pm REASON FOR STUDY: RT IM NAILING COMPARISON: 09/15/2017. FLUOROSCOPY TIME: 0.5 minutes. 6 images saved to PACS. TECHNIQUE: Intra-operative images acquired during surgical procedure to evaluate progress. NUMBER OF IMAGES: 6 images. LIMITATIONS: None. FINDINGS: Images acquired during surgical fixation of the hip fracture. IMPRESSION: IMAGE(S) OBTAINED DURING PROCEDURE. COMMENT: Quality ID [id number]: Final reports for procedures using fluoroscopy that document radiation exp osure indices, or exposure time and number of fluorographic images (if radiation exposure indices are not available) Please consult full operative report of the attending physician for description of the procedure. TECHNICAL DOCUMENTATION: JOB ID: [id number] [employer] All Rights Reserved
--- NOTE | 2017-09-17 08:59 | RADIOLOGY REPORT (SQ) ---
EXAM DESCRIPTION: NO CHG FLUORO; HIP RIGHT AP/LATERAL COMPLETED DATE/TIME: 09/16/2017 7:39 pm REASON FOR STUDY: RT IM NAILING COMPARISON: 09/15/2017. FLUOROSCOPY TIME: 0.5 minutes. 6 images saved to PACS. TECHNIQUE: Intra-operative images acquired during surgical procedure to evaluate progress. NUMBER OF IMAGES: 6 images. LIMITATIONS: None. FINDINGS: Images acquired during surgical fixation of the hip fracture. IMPRESSION: IMAGE(S) OBTAINED DURING PROCEDURE. COMMENT: Quality ID [id number]: Final reports for procedures using fluoroscopy that document radiation exp osure indices, or exposure time and number of fluorographic images (if radiation exposure indices are not available) Please consult full operative report of the attending physician for description of the procedure. TECHNICAL DOCUMENTATION: JOB ID: [id number] [employer]- All Rights Reserved
--- NOTE | 2017-09-17 11:00 | PDOC PROGRESS REPORT ---
Subjective Progress Note for:: 09/17/17 Subjective:: Patient seems to be doing somewhat better and is status post right hip surgery. Patient still sedated and is having intermittent agitation. Patient is not noted to have any chest arm or neck discomfort. Patient not noted to have or describing any PND, orthopnea.. Patient not noted to have fever chills. Patient does not seem to be in any other significant discomfort. Patient is maintaining sinus rhythm. System review: No significant changes Medications reviewed. Reason For Visit: HIP FRACTURE Physical Exam Vital Signs: Temp Pulse Resp BP Pulse Ox 97.2 F 71 17 105/45 L 96 09/17/17 07:25 09/17/17 07:25 09/17/17 07:25 09/17/17 07:25 09/17/17 08:25 Pulse Oximeter Continuous Start: 09/16/17 00: 30 Freq: RTQ4 Status: Active Document 09/17/17 08:25 TPO (Rec: 09/17/17 10:00 TPO [email or web address]) Pulse Oximetry Assessment Oxygen Saturation (92-100) 96 Oxygen Flow Rate (L/min) 6 Oxygen Delivery Method Simple Mask Equipment Usage Equipment in Use Continuous SpO2 Machine # 2 Intake & Output 09/16/17 09/17/17 09/18/17 06:59 06:59 06:59 Intake Total 100 2700 Output Total 1000 975 Balance -900 1725 Weight 67.676 kg Exam: GENERAL: well-nourished and in no acute distress. Patient is alert but not oriented to place time or person. HEAD: Atraumatic, normocephalic. EYES: Pupils equal round and reactive to light, extraocular movements intact, sclera anicteric, conjunctiva are normal. ENT: TMs normal, nares patent, oropharynx clear without exudates. Moist mucous membranes. No oral ulcerations or bleeding gums noted NECK: supple without lymphadenopathy or JVD. Trachea is central. No cervical or axillary lymphadenopathy noted. Carotids are 2+ LUNGS: Breath sounds bibasilar fine crackles at bases. No significant dullness noted. CHEST: Palpation of chest wall shows no significant chest wall tenderness. HEART: [place] [employer], No PSH, 2/6 MINNIE aortic area, 1/6 nicolas systolic murmur mitral area, rubs or gallops. ABDOMEN: Soft, no significant tenderness appreciated, normoactive bowel sounds. No guarding, no rebound. No rigidity noted . No masses appreciated. EXTREMITIES: Pedal pulses are 1-2+, no calf tenderness noted, Trace + pedal edema noted. No clubbing or cyanosis. NEUROLOGICAL: Patient is alert but is not able to participate in neurological exam because of patient's current mental status PSYCH: Patient cannot participate in a neurologic and psych exam because of the patient's current mental status SKIN: No significant ecchymosis, rash, ulcerations or signs of pruritus noted. MUSCULOSKELETAL EXAM: No significant joint swelling noted. Patient is status post right hip surgery. Results Laboratory Results: 09/17/17 05:50 09/17/17 05:50 09/17/17 09/17/17 05:50 05:50 WBC 12.4 H RBC 3.24 L Hgb 9.1 L D Hct 28.4 L MCV 88 MCH 28.1 MCHC 32.1 RDW 16.4 H Plt Count 205 Sodium 139.3 Potassium 4.7 Chloride 104 Carbon Dioxide 23 Anion Gap 12 BUN 47 H Creatinine 1.85 H Est GFR ( Amer) 43 L Est GFR (Non-Af Amer) 36 L Glucose 237 H Calcium 8.5 EKG Comments: Telemetry strips shows patient maintaining sinus rhythm. Impressions: Head CT 09/15/17 06:46 IMPRESSION: 1. No acute intracranial abnormality by CT criteria. This exam was performed according to our departmental dose-optimization program, which includes automated exposure control, adjustment of the mA and/or kV according to patient size and/or use of iterative reconstruction technique. Chest X-Ray 09/15/17 07:38 IMPRESSION: 1. No acute pulmonary process identified. Fluoroscopy 09/16/17 00:00 IMPRESSION: IMAGE(S) OBTAINED DURING PROCEDURE. Hip/Pelvis X-Ray 09/16/17 00:00 IMPRESSION: IMAGE(S) OBTAINED DURING PROCEDURE. Assessment & Plan - Diagnosis (1) Coronary artery disease Qualifiers: Coronary Disease-Associated Artery/Lesion type: [place] artery [place] vs. transplanted heart: [place] heart Associated angina: angina presence unspecified Qualified Code(s): I25.10 - Atherosclerotic heart disease of [place] coronary artery without angina pectoris Is this a current diagnosis for this admission?: Yes (2) Cardiomyopathy Qualifiers: Cardiomyopathy type: ischemic Qualified Code(s): I25.5 - Ischemic cardiomyopathy Is this a current diagnosis for this admission?: Yes (3) COPD (chronic obstructive pulmonary disease) Qualifiers: COPD type: unspecified COPD Qualified Code(s): J44.9 - Chronic obstructive pulmonary disease, unspecified Is this a current diagnosis for this admission?: Yes (4) Closed right hip fracture Qualifiers: Encounter type: initial encounter Qualified Code(s): S72.001A - Fracture of unspecified part of neck of right femur, initial encounter for closed fracture Is this a current diagnosis for this admission?: Yes - Notes Notes: Status post surgery on right hip per day 1: Patient has done better than expected. Continue postop care as requested by surgeon. Cardiomyopathy: Currently stable without any signs of decompensation. Medical management noted to be satisfactory. COPD: Currently stable. Coronary artery disease: Currently stable without any angina or angina equivalent symptoms. - Time Time with patient: 15-25 minutes - CODE STATUS was discussed, patient remains DNR. Surrogate decision-maker unchanged. Multiple medical problems were addressed. More than 50% of the time spent coordinating care, discussing management plans with involved caregivers. Management plans discussed with involved personnels. Medical decision making was of moderate to high complexity , patient's has multiple comorbidities. Medications reviewed and adjusted accordingly: Yes
--- NOTE | 2017-09-17 11:54 | PROGRESS NOTE E ---
Progress Note NAME: LUIS GODOY : 1940 AGE: 76Y DATE: 09/17/2017 ROOM: 409 SUBJECTIVE: The patient is currently lying in bed. The patient has returned from x-ray. The patient is oxygenating 100% on 2 L nasal cannula. The patient has done exceedingly well overnight, rested through the evening. The patient has had no reported episodes of vomiting nor diarrhea. The patient has been afebrile. He is still quite groggy. No concerns are voiced at this time. REVIEW OF SYSTEMS: Full review of systems cannot be appreciated given the patient's mental status. MEDICATIONS: Medications have been reviewed. OBJECTIVE: GENERAL: The patient is a 76-year-old male who is awake, alert, and oriented to person, place, time, and situation. He is verbal, conversational, does not appear to be in any acute distress. VITAL SIGNS: Temperature is 97.2, pulse 71, respirations 17, blood pressure is 105/45, oxygen saturation is 96% on 4 L nasal cannula. SKIN: Warm and dry. No rash. She is not diaphoretic. HEENT: Pupils are equal, round, and reactive to light and accommodation. Conjunctiva is pink. There is no evidence of JVP. CARDIOVASCULAR SYSTEM: Heart is regular. There is no murmur or rub. CHEST: Clear, symmetrical, unlabored. ABDOMEN: Soft, nontender, nondistended. EXTREMITIES: No clubbing, cyanosis, edema. PSYCHIATRIC: The patient is quite groggy. DIAGNOSTICS: Lab values are as follows: Hematology obtained on 09/17/2017: WBCs are 12.4, hemoglobin is 9.1, hematocrit is 28.4, platelet count is 205,000. Chemistry obtained on 09/17/2017: Sodium is 139, potassium 4.7, chloride is 104, carbon dioxide 23, BUN 47, creatinine is 1.85, glucose 237. Calcium is 8.5. IMPRESSION AND PLAN: 1. CLOSED RIGHT HIP FRACTURE. The patient has been seen by Dr. Willams and the patient to the OR yesterday. This is postoperative day number one. The patient has had repeat imaging of this. 2. PAROXYSMAL ATRIAL FIBRILLATION. The patient is in sinus rhythm. Continue amiodarone as well as beta [place] and follow. 3. CHRONIC KIDNEY DISEASE STAGE 3. The patient's creatinine appears to be about baseline. 4. DIABETES MELLITUS TYPE 2. Will continue sliding scale coverage. The patient can resume on a basal now that he is taking p.o. 5. CORONARY ARTERY DISEASE. The patient appears to have an ischemic cardiomyopathy. Overall, the patient has done quite well. Do appreciate Dr. Gunter's support with this. 6. CHRONIC OBSTRUCTIVE PULMONARY DISEASE. Will attempt to wean the patient down to his home O2 settings. DISPOSITION: The patient is a DO NOT RESUSCITATE/DO NOT INTUBATE. Pending patient's symptomatology and diagnostic findings, will re-evaluate in the a.m. Time spent on this followup including assessment, plan, physical examination, patient education, and review of records is 25 minutes. DICTATING PHYSICIAN: MEGGAN RIVERA NP [id number] PHY#: [id number] ID: [id number] JOB#: [id number] ACCT: [id number] cc: >
--- NOTE | 2017-09-17 12:29 | RADIOLOGY REPORT (SQ) ---
EXAM DESCRIPTION: HIP RIGHT AP/LATERAL COMPLETED DATE/TIME: 09/17/2017 11:27 am REASON FOR STUDY: CLOSED RIGHT HIP FRACTURE COMPARISON: 09/16/2017 and 09/15/2017. NUMBER OF VIEWS: Two views. TECHNIQUE: AP pelvis and additional frog-leg view of the right hip. LIMITATIONS: None. FINDINGS: MINERALIZATION: Normal. RIGHT HIP: Postoperative changes with hardware. LEFT HIP: No fracture or dislocation. No worrisome bone lesions. PUBIS AND ISCHIUM: No fracture. PELVIS: No fracture. SACRUM: No fracture or dislocation. No worrisome bone lesions. LOWER LUMBAR SPINE: No fracture or dislocation. No worrisome bone lesions. No significant disc disea se. SOFT TISSUES: No findings. OTHER: Surgical skin clips. IMPRESSION: POSTOPERATIVE RIGHT HIP WITH HARDWARE. TECHNICAL DOCUMENTATION: JOB ID: [id number] [employer]- All Rights Reserved
[2017-09-17] MEDS: INSULIN LISPRO 100 UNIT/ML 3 ML VIAL SUBCUT PRN ×2 (12:40→17:22)
[2017-09-17] MEDS: ISOSORBIDE MONONITRATE 30 MG TAB.ER.24H PO SCH (14:33)
[2017-09-17] MEDS: POTASSIUM CHLORIDE 10 MEQ TABLET.SA PO SCH (14:33)
[2017-09-17] MEDS: LISINOPRIL 5 MG TABLET PO SCH (14:34)
[2017-09-17] MEDS: AMIODARONE HCL 200 MG TABLET PO SCH (14:36)
[2017-09-17] MEDS: MAGNESIUM OXIDE 400 MG TABLET PO SCH (14:36)
[2017-09-17] MEDS: METOPROLOL SUCCINATE 25 MG TAB.SR.24H PO SCH (14:36)
[2017-09-17] MEDS: RANOLAZINE 500 MG TAB.SR.12H PO SCH (14:39)
[2017-09-17] MEDS: LIDOCAINE 5% (700 MG) TRANSDERMAL ADH..PATCH TP SCH (14:40)
[2017-09-17] MEDS: APIXABAN 5 MG TABLET PO SCH ×2 (14:40→17:24)
[2017-09-17] MEDS: FUROSEMIDE 40 MG TABLET PO SCH ×2 (14:41→17:22)
[2017-09-17] MEDS: CYCLOBENZAPRINE HCL 10 MG TABLET PO PRN (14:53)
[2017-09-17] MEDS: INSULIN GLARGINE,HUM.REC.ANLOG 300 UNIT/3 ML INSULN.PEN SUBCUT SCH (17:23)
--- NOTE | 2017-09-17 19:11 | PDOC PROGRESS REPORT ---
Subjective Progress Note for:: 09/17/17 Subjective:: Patient sleeping in bed. Sitter next to the bed due to his confusion. Reason For Visit: HIP FRACTURE Physical Exam Vital Signs: Temp Pulse Resp BP Pulse Ox 36.3 C 74 17 126/59 H 94 09/17/17 15:00 09/17/17 15:00 09/17/17 15:00 09/17/17 15:00 09/17/17 16:22 Pulse Oximeter Continuous Start: 09/16/17 00: 30 Freq: RTQ4 Status: Active Document 09/17/17 16:22 TPO (Rec: 09/17/17 16:23 TPO [email or web address]) Pulse Oximetry Assessment Oxygen Saturation (92-100) 94 Oxygen Flow Rate (L/min) 2 Oxygen Delivery Method Nasal Cannula Fraction of Inspired Oxygen (FIO2) 28 Equipment Usage Equipment in Use Continuous SpO2 Machine # 2 Intake & Output 09/16/17 09/17/17 09/18/17 06:59 06:59 06:59 Intake Total 100 2700 Output Total 1000 975 575 Balance -900 1725 -575 Weight 67.676 kg Adult Front & Back Image: 1 - Dressings are dry clean and intact with some bloody drainage on the medial incision. He is neurovascular intact distally. He has soft calves. Results Laboratory Results: 09/17/17 05:50 09/17/17 05:50 09/17/17 09/17/17 05:50 05:50 WBC 12.4 H RBC 3.24 L Hgb 9.1 L D Hct 28.4 L MCV 88 MCH 28.1 MCHC 32.1 RDW 16.4 H Plt Count 205 Sodium 139.3 Potassium 4.7 Chloride 104 Carbon Dioxide 23 Anion Gap 12 BUN 47 H Creatinine 1.85 H Est GFR ( Amer) 43 L Est GFR (Non-Af Amer) 36 L Glucose 237 H Calcium 8.5 Impressions: Head CT 09/15/17 06:46 IMPRESSION: 1. No acute intracranial abnormality by CT criteria. This exam was performed according to our departmental dose-optimization program, which includes automated exposure control, adjustment of the mA and/or kV according to patient size and/or use of iterative reconstruction technique. Chest X-Ray 09/15/17 07:38 IMPRESSION: 1. No acute pulmonary process identified. Fluoroscopy 09/16/17 00:00 IMPRESSION: IMAGE(S) OBTAINED DURING PROCEDURE. Hip/Pelvis X-Ray 09/17/17 11:45 IMPRESSION: POSTOPERATIVE RIGHT HIP WITH HARDWARE. Assessment & Plan - Diagnosis (1) Closed right hip fracture Qualifiers: Encounter type: initial encounter Qualified Code(s): S72.001A - Fracture of unspecified part of neck of right femur, initial encounter for closed fracture Is this a current diagnosis for this admission?: Yes - Plan Summary Plan Summary: Patient is 76-year-old male POD #1 from nailing of right hip fracture. Continue physical therapy Continue pain control Continue DVT prophylaxis Awaiting [facility] facility placement
[2017-09-18] MEDS: INSULIN LISPRO 100 UNIT/ML 3 ML VIAL SUBCUT PRN ×3 (00:47→17:11)
[2017-09-18] MEDS: ATORVASTATIN CALCIUM 80 MG TABLET PO SCH ×2 (00:50→21:38)
[2017-09-18] MEDS: MIRTAZAPINE 15 MG TABLET PO SCH ×2 (00:50→21:38)
[2017-09-18] MEDS: RANOLAZINE 500 MG TAB.SR.12H PO SCH ×3 (00:50→21:38)
[2017-09-18 07:17] LABS: HEMATOCRIT 23.4 % (37.9-51.0); MEAN CORPUSCULAR HEMOGLOBIN 28.7 pg (27.0-33.4); MEAN CORPUSCULAR VOLUME 87 fl (80-97); PLATELET COUNT 206 10^3/uL (150-450); RED BLOOD COUNT 2.68 10^6/uL (4.35-5.55); RED CELL DISTRIBUTION WIDTH 16.2 % (11.5-14.0); WHITE BLOOD COUNT 10.2 10^3/uL (4.0-10.5)
[2017-09-18 07:21] LABS: HEMOGLOBIN 7.7 g/dL (13.5-17.0)
[2017-09-18 07:31] LABS: ANION GAP 7 (5-19); BLOOD UREA NITROGEN 50 mg/dL (7-20); CALCIUM 8.4 mg/dL (8.4-10.2); CARBON DIOXIDE 28 mmol/L (22-30); CHLORIDE 103 mmol/L (98-107); GLUCOSE 177 mg/dL (75-110); MAGNESIUM 2.1 mg/dL (1.6-2.3); POTASSIUM 4.1 mmol/L (3.6-5.0); SODIUM 138.3 mmol/L (137-145)
[2017-09-18] MEDS ORDERED: DIPHENHYDRAMINE HCL 25 MG CAPSULE PO PRN (07:43)
[2017-09-18] MEDS ORDERED: NORMAL SALINE 250 ML IV PRN ×2 (07:43)
[2017-09-18] MEDS ORDERED: ACETAMINOPHEN 325 MG TABLET PO PRN (07:43)
[2017-09-18] MEDS: FUROSEMIDE 40 MG TABLET PO SCH ×2 (10:03→17:12)
[2017-09-18] MEDS: APIXABAN 5 MG TABLET PO SCH ×2 (10:03→17:12)
[2017-09-18] MEDS: MAGNESIUM OXIDE 400 MG TABLET PO SCH (10:04)
[2017-09-18] MEDS: LISINOPRIL 5 MG TABLET PO SCH (10:04)
[2017-09-18] MEDS: ISOSORBIDE MONONITRATE 30 MG TAB.ER.24H PO SCH (10:04)
[2017-09-18] MEDS: POTASSIUM CHLORIDE 10 MEQ TABLET.SA PO SCH (10:04)
[2017-09-18] MEDS: LIDOCAINE 5% (700 MG) TRANSDERMAL ADH..PATCH TP SCH (10:04)
[2017-09-18] MEDS: AMIODARONE HCL 200 MG TABLET PO SCH (13:24)
[2017-09-18] MEDS: METOPROLOL SUCCINATE 25 MG TAB.SR.24H PO SCH (13:24)
--- NOTE | 2017-09-18 13:24 | PDOC PROGRESS REPORT ---
Subjective Progress Note for:: 09/18/17 Subjective:: Patient seems to be doing somewhat better and is status post right hip surgery. Patient is more alert but has mild intermittent agitation. Patient is not noted to have any chest arm or neck discomfort. Patient not noted to have or describing any PND, orthopnea.. Patient not noted to have fever chills. Patient does not seem to be in any other significant discomfort. Patient is maintaining sinus rhythm. System review: No significant changes Medications reviewed. Reason For Visit: HIP FRACTURE Physical Exam Vital Signs: Temp Pulse Resp BP Pulse Ox 98.0 F 69 16 93/42 L 98 09/18/17 12:40 09/18/17 12:40 09/18/17 12:40 09/18/17 12:40 09/18/17 12:40 Pulse Oximeter Continuous Start: 09/16/17 00: 30 Freq: RTQ4 Status: Active Document 09/18/17 12:00 CW (Rec: 09/18/17 13:20 CW [email or web address]) Pulse Oximetry Assessment Oxygen Saturation (92-100) 98 Oxygen Flow Rate (L/min) 2.5 Oxygen Delivery Method Nasal Cannula Equipment Usage Equipment in Use Continuous SpO2 Machine # 2 Intake & Output 09/17/17 09/18/17 09/19/17 06:59 06:59 06:59 Intake Total 2700 400 0 Output Total 975 575 Balance 1725 -175 0 Weight 66.4 kg Exam: GENERAL: well-nourished and in no acute distress. Patient is alert, he seems oriented to place and person but not to time.. HEAD: Atraumatic, normocephalic. EYES: Pupils equal round and reactive to light, extraocular movements intact, sclera anicteric, conjunctiva are normal. ENT: TMs normal, nares patent, oropharynx clear without exudates. Moist mucous membranes. No oral ulcerations or bleeding gums noted NECK: supple without lymphadenopathy or JVD. Trachea is central. No cervical or axillary lymphadenopathy noted. Carotids are 2+ LUNGS: Breath sounds bibasilar fine crackles at bases. No significant dullness noted. CHEST: Palpation of chest wall shows no significant chest wall tenderness. HEART: [place] QUALITY IMPROVEMENT COORDINATOR, No PSH, 2/6 MINNIE aortic area, 1/6 nicolas systolic murmur mitral area, rubs or gallops. ABDOMEN: Soft, no significant tenderness appreciated, normoactive bowel sounds. No guarding, no rebound. No rigidity noted . No masses appreciated. EXTREMITIES: Pedal pulses are 1-2+, no calf tenderness noted, Trace + pedal edema noted. No clubbing or cyanosis. NEUROLOGICAL: Patient is alert but is not able to participate in neurological exam because of patient's current mental status. However no focal neurologic deficit noted. PSYCH: Patient cannot participate in a full neurologic and psych exam because of the patient's current mental status. Mood seems normal but judgment could not be checked. SKIN: No significant ecchymosis, rash, ulcerations or signs of pruritus noted. MUSCULOSKELETAL EXAM: No significant joint swelling noted. Patient is status post right hip surgery. Results Laboratory Results: 09/18/17 06:40 09/18/17 06:40 09/16/17 09/18/17 09/18/17 04:28 06:40 06:40 WBC 10.2 RBC 2.68 L Hgb 7.7 L Hct 23.4 L MCV 87 MCH 28.7 MCHC 33.0 RDW 16.2 H Plt Count 206 Sodium 138.3 Potassium 4.1 Chloride 103 Carbon Dioxide 28 Anion Gap 7 BUN 50 H Creatinine 1.66 H Est GFR ( Amer) 49 L Est GFR (Non-Af Amer) 40 L Glucose 177 H Calcium 8.4 Magnesium 2.1 Blood Type O POSITIVE Antibody Screen NEGATIVE EKG Comments: Telemetry shows sinus rhythm. No sustained tachycardia or bradycardia arrhythmias noted. Impressions: Head CT 09/15/17 06:46 IMPRESSION: 1. No acute intracranial abnormality by CT criteria. This exam was performed according to our departmental dose-optimization program, which includes automated exposure control, adjustment of the mA and/or kV according to patient size and/or use of iterative reconstruction technique. Chest X-Ray 09/15/17 07:38 IMPRESSION: 1. No acute pulmonary process identified. Fluoroscopy 09/16/17 00:00 IMPRESSION: IMAGE(S) OBTAINED DURING PROCEDURE. Hip/Pelvis X-Ray 09/17/17 11:45 IMPRESSION: POSTOPERATIVE RIGHT HIP WITH HARDWARE. Assessment & Plan - Diagnosis (1) Coronary artery disease Qualifiers: Coronary Disease-Associated Artery/Lesion type: [place] artery [place] vs. transplanted heart: [place] heart Associated angina: angina presence unspecified Qualified Code(s): I25.10 - Atherosclerotic heart disease of [place] coronary artery without angina pectoris Is this a current diagnosis for this admission?: Yes (2) Cardiomyopathy Qualifiers: Cardiomyopathy type: ischemic Qualified Code(s): I25.5 - Ischemic cardiomyopathy Is this a current diagnosis for this admission?: Yes (3) COPD (chronic obstructive pulmonary disease) Qualifiers: COPD type: unspecified COPD Qualified Code(s): J44.9 - Chronic obstructive pulmonary disease, unspecified Is this a current diagnosis for this admission?: Yes (4) Closed right hip fracture Qualifiers: Encounter type: initial encounter Qualified Code(s): S72.001A - Fracture of unspecified part of neck of right femur, initial encounter for closed fracture Is this a current diagnosis for this admission?: Yes - Notes Notes: Patient has remained stable from cardiac standpoint. Patient is on a current stable regimen including beta-blockers, antiplatelets, statins and Ranexa therapy. Currently without any symptoms of angina or angina equivalents symptom. Recommend DVT prophylaxis, pulmonary toilet. Patient noted to have drop in hemoglobin. In view of significant CAD, agree with blood transfusion and try to maintain hemoglobin around at least 9 g percent. Patient however noted to be tolerating anemia currently. - Time Time with patient: 15-25 minutes - CODE STATUS : was discussed, patient remains DO NOT RESUSCITATE. Surrogate decision-maker unchanged. Multiple medical problems were addressed. More than 50% of the time spent coordinating care, discussing management plans with involved caregivers. Management plans discussed with involved personnels. Medical decision making was of moderate to high complexity, patient's has multiple comorbidities.
[2017-09-18] MEDS: INSULIN GLARGINE,HUM.REC.ANLOG 300 UNIT/3 ML INSULN.PEN SUBCUT SCH (17:10)
[2017-09-18] MEDS ORDERED: NORMAL SALINE 1000 ML 1,000 ML IV PRN (17:19)
--- NOTE | 2017-09-18 17:19 | PROGRESS NOTE E ---
Progress Note NAME: LUIS GODOY : 1940 AGE: 76Y DATE: 09/18/2017 ROOM: 409 SUBJECTIVE: The patient is lying in bed. The patient denies any symptoms other than pain at this time. The patient has been afebrile. His blood pressures have been in a decent range. The patient has had diminished urinary output. The patient's hemoglobin did trend down overnight. The patient is unable to voice any specific concerns at this time. REVIEW OF SYSTEMS: Rest of review of systems is negative. MEDICATIONS: Medications have been reviewed. OBJECTIVE: GENERAL: The patient is a 76-year-old male who is awake, alert. He is oriented but sleepy. Does not appear to be distressed. VITAL SIGNS FOLLOWS: Temperature is 98.1. Pulse 70. Respirations 16. Blood pressure 111/48. Oxygen saturation 97% on 2 L nasal cannula. SKIN: Warm and dry. No rash. Not diaphoretic. HEENT: Pupils are reactive. NECK: There is no evidence of JVP. CARDIOVASCULAR SYSTEM: Heart is regular. There is no murmur or rub. CHEST: Clear, symmetrical, unlabored. ABDOMEN: Soft. Bowel sounds present. EXTREMITIES: There is no edema. DIAGNOSTICS: Lab values are as follows. Hematology obtained on 09/18/2017: WBCs are 10.2. Hemoglobin is 10.7. Hematocrit is 34.1. Platelet count is 206,000. Chemistry obtained on 09/18/2017: Sodium is 138, potassium 4.1, chloride is 103, carbon dioxide 28. BUN 50, creatinine 1.1, glucose 177. Calcium is 8.4. Magnesium is 2.1. IMPRESSION AND PLAN: 1. CLOSED RIGHT HIP FRACTURE. The patient has been seen by Dr. Willams and is postoperative day number two. 2. PAROXYSMAL ATRIAL FIBRILLATION. The patient is in sinus rhythm. Continue amiodarone as well as beta [place]. 3. CHRONIC KIDNEY DISEASE STAGE 3. The patient's creatinine is around baseline. 4. DIABETES MELLITUS TYPE 2. Will continue sliding-scale coverage. 5. CORONARY ARTERY DISEASE. The patient does have significant ischemic cardiomyopathy. Do appreciate Cardiology's input on this. 6. CHRONIC OBSTRUCTIVE PULMONARY DISEASE. The patient has been weaned down to 1.5 L. 7. POSTOPERATIVE ANEMIA. Will transfuse the patient. DISPOSITION: The patient is a DNR/DNI. Pending patient's symptomatology and diagnostic findings, will reevaluate in the a.m. TIME SPENT: Time spent on this followup including assessment, plan, physical examination, patient education, review of records is 25 minutes. DICTATING PHYSICIAN: MEGGAN RIVERA NP [id number] PHY#: [id number] ID: [id number] JOB#: [id number] ACCT: [id number] cc: > MTDD
[2017-09-18] MEDS: CYCLOBENZAPRINE HCL 10 MG TABLET PO PRN (23:38)
[2017-09-19] MEDS: INSULIN LISPRO 100 UNIT/ML 3 ML VIAL SUBCUT PRN ×4 (07:50→23:00)
[2017-09-19] MEDS: OXYCODONE-ACETAMINOPHEN 5-325 MG TABLET PO PRN ×2 (10:55→21:34)
[2017-09-19] MEDS: RANOLAZINE 500 MG TAB.SR.12H PO SCH ×2 (10:55→21:31)
[2017-09-19] MEDS: MAGNESIUM OXIDE 400 MG TABLET PO SCH (10:55)
[2017-09-19] MEDS: LIDOCAINE 5% (700 MG) TRANSDERMAL ADH..PATCH TP SCH (10:55)
[2017-09-19] MEDS: POTASSIUM CHLORIDE 10 MEQ TABLET.SA PO SCH (10:55)
[2017-09-19] MEDS: APIXABAN 5 MG TABLET PO SCH ×2 (10:55→17:11)
[2017-09-19] MEDS: ISOSORBIDE MONONITRATE 30 MG TAB.ER.24H PO SCH (10:55)
[2017-09-19] MEDS: LISINOPRIL 5 MG TABLET PO SCH (10:55)
[2017-09-19] MEDS: FUROSEMIDE 40 MG TABLET PO SCH (10:57)
--- NOTE | 2017-09-19 11:09 | PROGRESS NOTE E ---
Progress Note NAME: LUIS GODOY : 1940 AGE: 76Y DATE: 09/19/2017 ROOM: 409 SUBJECTIVE: The patient is currently lying in bed. He states that he is having pain in his postoperative leg. The patient denies any nausea, vomiting, no diarrhea. The patient's cognition does appear to be overall improved. There has been no reported episodes of vomiting nor diarrhea. The patient has been afebrile. His blood pressures have been in acceptable range. The patient has been oxygenating relatively well on 2 liters nasal cannula between 90-94. Patient does not voice any other concerns at this time. REVIEW OF SYSTEMS: Rest of review of systems is negative. MEDICATIONS: Medications have been reviewed. OBJECTIVE: GENERAL: The patient is a 76-year-old male who is awake, alert and oriented but somewhat delayed. He does not appear to be in any acute distressed. VITAL SIGNS FOLLOWS: Temperature is 98.1. Pulse 70. Respirations 16. Blood pressure 111/48. Oxygen saturation 97% on 2 L nasal cannula. DIAGNOSTICS: Lab values are as follows. Hematology obtained on 09/18/2017: WBCs are 10.2. Hemoglobin is 7.7. Hematocrit is 23.4. Platelet count is 206,000. Chemistry obtained on 09/18/2017: Sodium is 138, potassium 4.1, chloride is 103, carbon dioxide 28. BUN 50, creatinine 0.66, glucose 177. Calcium is 8.4. Magnesium is 2.1. IMPRESSION AND PLAN: 1. CLOSED RIGHT HIP FRACTURE. The patient has been seen by Dr. Willams and is postoperative day number 3. Do appreciate Orthopedic's input on this. The patient has been cleared for discharge from an orthopedic perspective. Will encourage participation in physical therapy if transitioned. The patient's same medications oral. Delayed this given that the patient was in such pain yesterday. Hopefully this will improve. 2. PATHOLOGICAL VERSUS TRAUMATIC VERTEBRAL FRACTURES. This did happen back in May of this year as the patient sustained a fall and was found to have lumbar injury but was not deemed a candidate for kyphoplasty given the patient's severe cardiomyopathy and coronary disease. Will continue symptomatic management and include lidocaine patch. 3. PAROXYSMAL ATRIAL FIBRILLATION. The patient is currently in sinus rhythm. Will continue amiodarone as well as the beta [place]. 4. CHRONIC KIDNEY DISEASE STAGE III. Creatinine at baseline. 5. DIABETES MELLITUS TYPE 2. Continue sliding scale coverage. 6. CORONARY ARTERY DISEASE. The patient does have significant ischemic cardiomyopathy. Do appreciate Cardiology's input on this. 7. CHRONIC OBSTRUCTIVE PULMONARY DISEASE. The patient has been weaned down to 1.5 L. 8. POSTOPERATIVE ANEMIA. The patient has been transfused. Awaiting repeat CBC. 9. 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 EF is 20% by ECHO and 40% by cath in July. Patient was to go to rehab to get stronger for revascularization but broke hip only two days out of rehab. DISPOSITION: The patient is a DO NOT RESUSCITATE/DO NOT INTUBATE. Pending patient's symptomatology and diagnostic findings, will reevaluate in the a.m. The patient can be downgraded to a medical bed. TIME SPENT: Time spent on this followup including assessment, plan, physical examination, patient education, review of records is 25 minutes. DICTATING PHYSICIAN: MEGGAN RIVERA NP [id number] Y#: [id number] ID: [id number] JOB#: [id number] ACCT: [id number] cc: > MTDD
[2017-09-19 12:02] LABS: ABSOLUTE EOSINOPHILS # (AUTO) 0.2 10^3/uL (0.0-0.6); ABSOLUTE LYMPHOCYTES (AUTO) 0.9 10^3/uL (0.5-4.7); ABSOLUTE MONOCYTES (AUTO) 0.7 10^3/uL (0.1-1.4); ABSOLUTE NEUT (AUTO) 6.8 10^3/uL (1.7-8.2); BASOPHILS % (AUTO) 0.5 % (0-2); EOSINOPHILS % (AUTO) 1.8 % (0-6); HEMATOCRIT 34.3 % (37.9-51.0); LYMPHOCYTES % (AUTO) 10.7 % (13-45); MEAN CORPUSCULAR HEMOGLOBIN 29.8 pg (27.0-33.4); MEAN CORPUSCULAR HGB CONC 33.4 g/dL (32.0-36.0); MEAN CORPUSCULAR VOLUME 89 fl (80-97); MONOCYTES % (AUTO) 8.1 % (3-13); PLATELET COUNT 203 10^3/uL (150-450); RED BLOOD COUNT 3.85 10^6/uL (4.35-5.55); RED CELL DISTRIBUTION WIDTH 16.7 % (11.5-14.0); SEGMENTED NEUTROPHILS % (AUTO) 78.9 % (42-78); TOTAL CELLS COUNTED % (AUTO) 100 %; WHITE BLOOD COUNT 8.6 10^3/uL (4.0-10.5)
[2017-09-19 12:04] LABS: HEMOGLOBIN 11.5 g/dL (13.5-17.0)
[2017-09-19 12:09] LABS: ANION GAP 8 (5-19); BLOOD UREA NITROGEN 43 mg/dL (7-20); CALCIUM 8.3 mg/dL (8.4-10.2); CARBON DIOXIDE 28 mmol/L (22-30); CHLORIDE 102 mmol/L (98-107); GLUCOSE 215 mg/dL (75-110); POTASSIUM 3.9 mmol/L (3.6-5.0); SODIUM 138.4 mmol/L (137-145)
--- NOTE | 2017-09-19 12:43 | PDOC PROGRESS REPORT ---
Subjective Progress Note for:: 09/19/17 Subjective:: Patient seems to be doing better and is status post right hip surgery. Today noted to be alert oriented 3. Patient is not noted to have any chest arm or neck discomfort. Patient not noted to have or describing any PND, orthopnea.. Patient not noted to have fever chills. Patient does not seem to be in any other significant discomfort. Patient is maintaining sinus rhythm. System review: No significant changes Medications reviewed. Reason For Visit: HIP FRACTURE Physical Exam Vital Signs: Temp Pulse Resp BP Pulse Ox 97.4 F 79 18 102/53 L 96 09/19/17 12:26 09/19/17 12:26 09/19/17 12:26 09/19/17 12:26 09/19/17 12:26 Pulse Oximeter Continuous Start: 09/16/17 00: 30 Freq: RTQ4 Status: Active Document 09/19/17 09:53 NSC (Rec: 09/19/17 09:54 NSC [email or web address]) Pulse Oximetry Assessment Oxygen Saturation (92-100) 94 Oxygen Delivery Method Room Air Fraction of Inspired Oxygen (FIO2) 21 Equipment Usage Equipment in Use Continuous SpO2 Machine # N 2 Intake & Output 09/18/17 09/19/17 09/20/17 06:59 06:59 06:59 Intake Total 400 2822 Output Total 575 950 Balance -175 1872 Weight 66.4 kg 68.4 kg Exam: GENERAL: well-nourished and in no acute distress. Alert and oriented x3 HEAD: Atraumatic, normocephalic. EYES: Pupils equal round and reactive to light, extraocular movements intact, sclera anicteric, conjunctiva are normal. ENT: TMs normal, nares patent, oropharynx clear without exudates. Moist mucous membranes. No oral ulcerations or bleeding gums noted NECK: supple without lymphadenopathy. Trachea is central. No cervical or axillary lymphadenopathy noted. Carotids are 2+, JVD WNL LUNGS: Respiration seems nonlabored, no significant accessory muscle action noted. Breath sounds clear to auscultation bilaterally and equal noted. No wheezes rales or rhonchi noted. No significant dullness noted on percussion. CHEST: Palpation of the chest wall shows no significant chest wall tenderness. No other significant abnormalities noted. HEART: [place] KIER PLEATER, No PSH, 1/6 MINNIE aortic area, 1/6 nicolas systolic murmur mitral area, no rubs, no gallops. ABDOMEN: Soft, no significant tenderness appreciated, normoactive bowel sounds. No guarding, no rebound. No rigidity noted . No masses appreciated. EXTREMITIES: Pedal pulses are 1-2+, no calf tenderness noted. No clubbing or cyanosis.trace to 1+ pedal edema noted NEUROLOGICAL: Focused neurological exam showed no significant neurologic deficit. Normal speech, no focal weakness appreciated. PSYCH: Normal mood, normal affect. Judgment and insight within normal limits. SKIN: No significant ecchymosis, rash, ulcerations or signs of pruritus noted. MUSCULOSKELETAL EXAM: No significant joint swelling noted. Postsurgical changes noted right hip. Results Laboratory Results: 09/19/17 11:10 09/19/17 11:10 09/16/17 09/19/17 09/19/17 04:28 11:10 11:10 WBC 8.6 RBC 3.85 L Hgb 11.5 L D Hct 34.3 L MCV 89 MCH 29.8 MCHC 33.4 RDW 16.7 H Plt Count 203 Seg Neutrophils % 78.9 H Lymphocytes % 10.7 L Monocytes % 8.1 Eosinophils % 1.8 Basophils % 0.5 Absolute Neutrophils 6.8 Absolute Lymphocytes 0.9 Absolute Monocytes 0.7 Absolute Eosinophils 0.2 Absolute Basophils 0.0 Sodium 138.4 Potassium 3.9 Chloride 102 Carbon Dioxide 28 Anion Gap 8 BUN 43 H Creatinine 1.32 H Est GFR ( Amer) > 60 Est GFR (Non-Af Amer) 53 L Glucose 215 H Calcium 8.3 L Blood Type O POSITIVE Antibody Screen NEGATIVE EKG Comments: Telemetry strips shows sinus rhythm. No sustained tachycardia or bradycardia arrhythmias noted. Impressions: Head CT 09/15/17 06:46 IMPRESSION: 1. No acute intracranial abnormality by CT criteria. This exam was performed according to our departmental dose-optimization program, which includes automated exposure control, adjustment of the mA and/or kV according to patient size and/or use of iterative reconstruction technique. Chest X-Ray 09/15/17 07:38 IMPRESSION: 1. No acute pulmonary process identified. Fluoroscopy 09/16/17 00:00 IMPRESSION: IMAGE(S) OBTAINED DURING PROCEDURE. Hip/Pelvis X-Ray 09/17/17 11:45 IMPRESSION: POSTOPERATIVE RIGHT HIP WITH HARDWARE. Assessment & Plan - Diagnosis (1) Coronary artery disease Qualifiers: Coronary Disease-Associated Artery/Lesion type: [place] artery [place] vs. transplanted heart: [place] heart Associated angina: angina presence unspecified Qualified Code(s): I25.10 - Atherosclerotic heart disease of [place] coronary artery without angina pectoris Is this a current diagnosis for this admission?: Yes (2) Cardiomyopathy Qualifiers: Cardiomyopathy type: ischemic Qualified Code(s): I25.5 - Ischemic cardiomyopathy Is this a current diagnosis for this admission?: Yes (3) COPD (chronic obstructive pulmonary disease) Qualifiers: COPD type: unspecified COPD Qualified Code(s): J44.9 - Chronic obstructive pulmonary disease, unspecified Is this a current diagnosis for this admission?: Yes (4) Closed right hip fracture Qualifiers: Encounter type: initial encounter Qualified Code(s): S72.001A - Fracture of unspecified part of neck of right femur, initial encounter for closed fracture Is this a current diagnosis for this admission?: Yes (5) Anemia Qualifiers: Anemia type: unspecified type Qualified Code(s): D64.9 - Anemia, unspecified Is this a current diagnosis for this admission?: Yes - Notes Notes: Patient has remained stable from cardiac standpoint. Patient is on a current stable regimen including beta-blockers, antiplatelets, statins and Ranexa therapy. Currently without any symptoms of angina or angina equivalents symptom. Recommend DVT prophylaxis, pulmonary toilet. Patient was noted to have drop in hemoglobin. In view of significant CAD, agree with blood transfusion and try to maintain hemoglobin around at least 9 g percent. Patient however noted to be tolerating anemia currently. Patient did get blood transfusion yesterday and his hemoglobin is now over 10 g percent. Patient has remained stable from cardiac standpoint. Will sign off. Please reconsult if needed. Will be happy to take care of patient as an outpatient. - Time Time with patient: 15-25 minutes - CODE STATUS : was discussed, patient remains DO NOT RESUSCITATE. Surrogate decision-maker unchanged. Multiple medical problems were addressed. More than 50% of the time spent coordinating care, discussing management plans with involved caregivers. Management plans discussed with involved personnels. Medical decision making was of moderate to high complexity, patient's has multiple comorbidities. Medications reviewed and adjusted accordingly: Yes
--- NOTE | 2017-09-19 13:07 | PDOC PROGRESS REPORT ---
Subjective Progress Note for:: 09/18/17 Subjective:: Patient resting in bed hard to arouse. Reason For Visit: HIP FRACTURE Physical Exam Vital Signs: Temp Pulse Resp BP Pulse Ox 36.3 C 79 18 102/53 L 93 09/19/17 12:26 09/19/17 12:26 09/19/17 12:26 09/19/17 12:26 09/19/17 12:58 Pulse Oximeter Continuous Start: 09/16/17 00: 30 Freq: RTQ4 Status: Active Document 09/19/17 12:58 NSC (Rec: 09/19/17 12:58 [facility] [place] [email or web address]) Pulse Oximetry Assessment Oxygen Saturation (92-100) 93 Oxygen Delivery Method Room Air Fraction of Inspired Oxygen (FIO2) 21 Equipment Usage Equipment in Use Continuous SpO2 Machine # 2 Intake & Output 09/18/17 09/19/17 09/20/17 06:59 06:59 06:59 Intake Total 400 2822 Output Total 575 950 Balance -175 1872 Weight 66.4 kg 68.4 kg Adult Front & Back Image: 1 - Dressings are dry clean and intact with mild bloody drainage from the medial incision and proximal incision. Swelling unchanged. Neurovascular intact distally. Soft cast. Results Laboratory Results: 09/19/17 11:10 09/19/17 11:10 09/16/17 09/19/17 09/19/17 04:28 11:10 11:10 WBC 8.6 RBC 3.85 L Hgb 11.5 L D Hct 34.3 L MCV 89 MCH 29.8 MCHC 33.4 RDW 16.7 H Plt Count 203 Seg Neutrophils % 78.9 H Lymphocytes % 10.7 L Monocytes % 8.1 Eosinophils % 1.8 Basophils % 0.5 Absolute Neutrophils 6.8 Absolute Lymphocytes 0.9 Absolute Monocytes 0.7 Absolute Eosinophils 0.2 Absolute Basophils 0.0 Sodium 138.4 Potassium 3.9 Chloride 102 Carbon Dioxide 28 Anion Gap 8 BUN 43 H Creatinine 1.32 H Est GFR ( Amer) > 60 Est GFR (Non-Af Amer) 53 L Glucose 215 H Calcium 8.3 L Blood Type O POSITIVE Antibody Screen NEGATIVE Impressions: Head CT 09/15/17 06:46 IMPRESSION: 1. No acute intracranial abnormality by CT criteria. This exam was performed according to our departmental dose-optimization program, which includes automated exposure control, adjustment of the mA and/or kV according to patient size and/or use of iterative reconstruction technique. Chest X-Ray 09/15/17 07:38 IMPRESSION: 1. No acute pulmonary process identified. Fluoroscopy 09/16/17 00:00 IMPRESSION: IMAGE(S) OBTAINED DURING PROCEDURE. Hip/Pelvis X-Ray 09/17/17 11:45 IMPRESSION: POSTOPERATIVE RIGHT HIP WITH HARDWARE. Assessment & Plan - Diagnosis (1) Closed right hip fracture Qualifiers: Encounter type: initial encounter Qualified Code(s): S72.001A - Fracture of unspecified part of neck of right femur, initial encounter for closed fracture Is this a current diagnosis for this admission?: Yes - Plan Summary Plan Summary: Patient is 76-year-old male POD #2 from nailing of the right intertrochanteric hip fracture. Continue physical therapy Continue pain control Continue DVT prophylaxis Awaiting [facility] facility placement
--- NOTE | 2017-09-19 13:08 | PDOC PROGRESS REPORT ---
Subjective Progress Note for:: 09/19/17 Subjective:: Patient sleeping in bed. [place] we inserted due to patient not urinating yesterday and full bladder. Reason For Visit: HIP FRACTURE Physical Exam Vital Signs: Temp Pulse Resp BP Pulse Ox 36.3 C 79 18 102/53 L 93 09/19/17 12:26 09/19/17 12:26 09/19/17 12:26 09/19/17 12:26 09/19/17 12:58 Pulse Oximeter Continuous Start: 09/16/17 00: 30 Freq: RTQ4 Status: Active Document 09/19/17 12:58 NSC (Rec: 09/19/17 12:58 NSC [email or web address]) Pulse Oximetry Assessment Oxygen Saturation (92-100) 93 Oxygen Delivery Method Room Air Fraction of Inspired Oxygen (FIO2) 21 Equipment Usage Equipment in Use Continuous SpO2 Machine # 2 Intake & Output 09/18/17 09/19/17 09/20/17 06:59 06:59 06:59 Intake Total 400 2822 Output Total 575 950 Balance -175 1872 Weight 66.4 kg 68.4 kg Adult Front & Back Image: 1 - Dressing intact with bloody drainage unchanged from yesterday. Neurovascular intact distally. Results Laboratory Results: 09/19/17 11:10 09/19/17 11:10 09/16/17 09/19/17 09/19/17 04:28 11:10 11:10 WBC 8.6 RBC 3.85 L Hgb 11.5 L D Hct 34.3 L MCV 89 MCH 29.8 MCHC 33.4 RDW 16.7 H Plt Count 203 Seg Neutrophils % 78.9 H Lymphocytes % 10.7 L Monocytes % 8.1 Eosinophils % 1.8 Basophils % 0.5 Absolute Neutrophils 6.8 Absolute Lymphocytes 0.9 Absolute Monocytes 0.7 Absolute Eosinophils 0.2 Absolute Basophils 0.0 Sodium 138.4 Potassium 3.9 Chloride 102 Carbon Dioxide 28 Anion Gap 8 BUN 43 H Creatinine 1.32 H Est GFR ( Amer) > 60 Est GFR (Non-Af Amer) 53 L Glucose 215 H Calcium 8.3 L Blood Type O POSITIVE Antibody Screen NEGATIVE Impressions: Head CT 09/15/17 06:46 IMPRESSION: 1. No acute intracranial abnormality by CT criteria. This exam was performed according to our departmental dose-optimization program, which includes automated exposure control, adjustment of the mA and/or kV according to patient size and/or use of iterative reconstruction technique. Chest X-Ray 09/15/17 07:38 IMPRESSION: 1. No acute pulmonary process identified. Fluoroscopy 09/16/17 00:00 IMPRESSION: IMAGE(S) OBTAINED DURING PROCEDURE. Hip/Pelvis X-Ray 09/17/17 11:45 IMPRESSION: POSTOPERATIVE RIGHT HIP WITH HARDWARE. Assessment & Plan - Diagnosis (1) Closed right hip fracture Qualifiers: Encounter type: initial encounter Qualified Code(s): S72.001A - Fracture of unspecified part of neck of right femur, initial encounter for closed fracture Is this a current diagnosis for this admission?: Yes - Plan Summary Plan Summary: Patient is 76-year-old male POD #3 from cephalo-medullary nailing of right intertrochanteric hip fracture. Continue physical therapy Continue pain control Continue DVT prophylaxis Awaiting [facility] facility [facility]
[2017-09-19] MEDS: AMIODARONE HCL 200 MG TABLET PO SCH (14:03)
[2017-09-19] MEDS: METOPROLOL SUCCINATE 25 MG TAB.SR.24H PO SCH (14:03)
[2017-09-19] MEDS: INSULIN GLARGINE,HUM.REC.ANLOG 300 UNIT/3 ML INSULN.PEN SUBCUT SCH (17:11)
[2017-09-19] MEDS: MIRTAZAPINE 15 MG TABLET PO SCH (21:31)
[2017-09-19] MEDS: ATORVASTATIN CALCIUM 80 MG TABLET PO SCH (21:31)
[2017-09-19] MEDS: CYCLOBENZAPRINE HCL 10 MG TABLET PO PRN (21:34)
[2017-09-20 05:34] LABS: ABSOLUTE BASOPHILS # (AUTO) 0.1 10^3/uL (0.0-0.2); ABSOLUTE EOSINOPHILS # (AUTO) 0.3 10^3/uL (0.0-0.6); ABSOLUTE LYMPHOCYTES (AUTO) 0.9 10^3/uL (0.5-4.7); ABSOLUTE MONOCYTES (AUTO) 0.8 10^3/uL (0.1-1.4); BASOPHILS % (AUTO) 0.7 % (0-2); EOSINOPHILS % (AUTO) 3.3 % (0-6); HEMATOCRIT 33.2 % (37.9-51.0); HEMOGLOBIN 10.8 g/dL (13.5-17.0); LYMPHOCYTES % (AUTO) 11.4 % (13-45); MEAN CORPUSCULAR HEMOGLOBIN 29.4 pg (27.0-33.4); MEAN CORPUSCULAR HGB CONC 32.7 g/dL (32.0-36.0); MEAN CORPUSCULAR VOLUME 90 fl (80-97); MONOCYTES % (AUTO) 10.2 % (3-13); PLATELET COUNT 210 10^3/uL (150-450); RED BLOOD COUNT 3.69 10^6/uL (4.35-5.55); RED CELL DISTRIBUTION WIDTH 16.7 % (11.5-14.0); SEGMENTED NEUTROPHILS % (AUTO) 74.4 % (42-78); TOTAL CELLS COUNTED % (AUTO) 100 %; WHITE BLOOD COUNT 8.1 10^3/uL (4.0-10.5)
[2017-09-20 05:55] LABS: ANION GAP 7 (5-19); BLOOD UREA NITROGEN 37 mg/dL (7-20); CALCIUM 8.3 mg/dL (8.4-10.2); CARBON DIOXIDE 29 mmol/L (22-30); CHLORIDE 102 mmol/L (98-107); GLUCOSE 220 mg/dL (75-110); POTASSIUM 4.3 mmol/L (3.6-5.0)
[2017-09-20] MEDS: MAGNESIUM OXIDE 400 MG TABLET PO SCH (11:32)
[2017-09-20] MEDS: INSULIN LISPRO 100 UNIT/ML 3 ML VIAL SUBCUT PRN ×2 (11:32→22:00)
[2017-09-20] MEDS: APIXABAN 5 MG TABLET PO SCH ×2 (11:32→18:22)
[2017-09-20] MEDS: ISOSORBIDE MONONITRATE 30 MG TAB.ER.24H PO SCH (11:33)
[2017-09-20] MEDS: LISINOPRIL 5 MG TABLET PO SCH (11:33)
[2017-09-20] MEDS: RANOLAZINE 500 MG TAB.SR.12H PO SCH ×2 (11:34→22:00)
[2017-09-20] MEDS: POTASSIUM CHLORIDE 10 MEQ TABLET.SA PO SCH (11:34)
[2017-09-20] MEDS: LIDOCAINE 5% (700 MG) TRANSDERMAL ADH..PATCH TP SCH (11:34)
[2017-09-20] MEDS: OXYCODONE-ACETAMINOPHEN 5-325 MG TABLET PO PRN ×2 (11:53→22:00)
--- NOTE | 2017-09-20 12:52 | PDOC PROGRESS REPORT ---
Subjective Progress Note for:: 09/20/17 Subjective:: Refused PT today. Last night was confused and agitated Reason For Visit: HIP FRACTURE Physical Exam Vital Signs: Temp Pulse Resp BP Pulse Ox 36.7 C 72 14 120/62 96 09/20/17 00:04 09/20/17 00:04 09/20/17 00:04 09/20/17 00:04 09/20/17 08:40 Pulse Oximeter Continuous Start: 09/16/17 00: 30 Freq: RTQ4 Status: Active Document 09/20/17 08:40 NSC (Rec: 09/20/17 11:44 NSC [email or web address]) Pulse Oximetry Assessment Oxygen Saturation (92-100) 96 Oxygen Flow Rate (L/min) 1 Oxygen Delivery Method Nasal Cannula Fraction of Inspired Oxygen (FIO2) 21 Equipment Usage Equipment in Use Continuous SpO2 Machine # 2 Intake & Output 09/19/17 09/20/17 09/21/17 06:59 06:59 06:59 Intake Total 2822 1452 Output Total 950 850 Balance 1872 602 Weight 68.4 kg 69 kg Adult Front & Back Image: 1 - Incision dry clean and intact. NVI distally. soft calf Results Laboratory Results: 09/20/17 04:59 09/20/17 04:59 09/20/17 09/20/17 04:59 04:59 WBC 8.1 RBC 3.69 L Hgb 10.8 L Hct 33.2 L MCV 90 MCH 29.4 MCHC 32.7 RDW 16.7 H Plt Count 210 Seg Neutrophils % 74.4 Lymphocytes % 11.4 L Monocytes % 10.2 Eosinophils % 3.3 Basophils % 0.7 Absolute Neutrophils 6.0 Absolute Lymphocytes 0.9 Absolute Monocytes 0.8 Absolute Eosinophils 0.3 Absolute Basophils 0.1 Sodium 138.0 Potassium 4.3 Chloride 102 Carbon Dioxide 29 Anion Gap 7 BUN 37 H Creatinine 1.21 Est GFR ( Amer) > 60 Est GFR (Non-Af Amer) 58 L Glucose 220 H Calcium 8.3 L Magnesium 2.0 Impressions: Head CT 09/15/17 06:46 IMPRESSION: 1. No acute intracranial abnormality by CT criteria. This exam was performed according to our departmental dose-optimization program, which includes automated exposure control, adjustment of the mA and/or kV according to patient size and/or use of iterative reconstruction technique. Chest X-Ray 09/15/17 07:38 IMPRESSION: 1. No acute pulmonary process identified. Fluoroscopy 09/16/17 00:00 IMPRESSION: IMAGE(S) OBTAINED DURING PROCEDURE. Hip/Pelvis X-Ray 09/17/17 11:45 IMPRESSION: POSTOPERATIVE RIGHT HIP WITH HARDWARE. Assessment & Plan - Diagnosis (1) Closed right hip fracture Qualifiers: Encounter type: initial encounter Qualified Code(s): S72.001A - Fracture of unspecified part of neck of right femur, initial encounter for closed fracture Is this a current diagnosis for this admission?: Yes - Plan Summary Plan Summary: S/P nailing right hip fracture PT/OT will come back this afternoon to try again DVT prophylaxis needs rehab at discharge
[2017-09-20] MEDS: METOPROLOL SUCCINATE 25 MG TAB.SR.24H PO SCH (14:39)
[2017-09-20] MEDS: AMIODARONE HCL 200 MG TABLET PO SCH (14:40)
--- NOTE | 2017-09-20 15:43 | PDOC PROGRESS REPORT ---
Subjective Progress Note for:: 09/20/17 Subjective:: The patient is resting in his bed. He is awake and alert. He seems to be somewhat depressed. He really will not answer my questions. He states his pain is controlled as long as he does not try to move around. A good review of systems could not be obtained. He did seem to be alert and oriented today. Reason For Visit: HIP FRACTURE Physical Exam Vital Signs: Temp Pulse Resp BP Pulse Ox 98.1 F 72 14 120/62 96 09/20/17 00:04 09/20/17 00:04 09/20/17 00:04 09/20/17 00:04 09/20/17 12:55 Pulse Oximeter Continuous Start: 09/16/17 00: 30 Freq: RTQ4 Status: Active Document 09/20/17 12:55 [facility] [place] (Rec: 09/20/17 13:38 [facility] [place] [email or web address]) Pulse Oximetry Assessment Oxygen Saturation (92-100) 96 Oxygen Flow Rate (L/min) 2 Oxygen Delivery Method Nasal Cannula Fraction of Inspired Oxygen (FIO2) 28 Equipment Usage Equipment in Use Continuous SpO2 Machine # 2 Intake & Output 09/19/17 09/20/17 09/21/17 06:59 06:59 06:59 Intake Total 2822 1452 Output Total 950 850 Balance 1872 602 Weight 68.4 kg 69 kg General appearance: PRESENT: no acute distress, thin Head exam: PRESENT: atraumatic, normocephalic Mouth exam: PRESENT: moist, tongue midline Respiratory exam: PRESENT: clear to auscultation [place]. ABSENT: rales, rhonchi, wheezes Cardiovascular exam: PRESENT: RRR. ABSENT: diastolic murmur, rubs, systolic murmur GI/Abdominal exam: PRESENT: normal bowel sounds, soft. ABSENT: distended, guarding, mass, organolmegaly, rebound, tenderness Rectal exam: PRESENT: deferred Extremities exam: PRESENT: full ROM. ABSENT: calf tenderness, clubbing, pedal edema Neurological exam: PRESENT: alert, awake, oriented to person, oriented to place , oriented to time, oriented to situation, CN II-XII grossly intact. ABSENT: motor sensory deficit Psychiatric exam: PRESENT: depressed Skin exam: PRESENT: dry, intact, warm. ABSENT: cyanosis, rash Results Laboratory Results: 09/20/17 04:59 09/20/17 04:59 09/20/17 09/20/17 04:59 04:59 WBC 8.1 RBC 3.69 L Hgb 10.8 L Hct 33.2 L MCV 90 MCH 29.4 MCHC 32.7 RDW 16.7 H Plt Count 210 Seg Neutrophils % 74.4 Lymphocytes % 11.4 L Monocytes % 10.2 Eosinophils % 3.3 Basophils % 0.7 Absolute Neutrophils 6.0 Absolute Lymphocytes 0.9 Absolute Monocytes 0.8 Absolute Eosinophils 0.3 Absolute Basophils 0.1 Sodium 138.0 Potassium 4.3 Chloride 102 Carbon Dioxide 29 Anion Gap 7 BUN 37 H Creatinine 1.21 Est GFR ( Amer) > 60 Est GFR (Non-Af Amer) 58 L Glucose 220 H Calcium 8.3 L Magnesium 2.0 Impressions: Head CT 09/15/17 06:46 IMPRESSION: 1. No acute intracranial abnormality by CT criteria. This exam was performed according to our departmental dose-optimization program, which includes automated exposure control, adjustment of the mA and/or kV according to patient size and/or use of iterative reconstruction technique. Chest X-Ray 09/15/17 07:38 IMPRESSION: 1. No acute pulmonary process identified. Fluoroscopy 09/16/17 00:00 IMPRESSION: IMAGE(S) OBTAINED DURING PROCEDURE. Hip/Pelvis X-Ray 09/17/17 11:45 IMPRESSION: POSTOPERATIVE RIGHT HIP WITH HARDWARE. Assessment & Plan - Diagnosis (1) Closed right hip fracture Qualifiers: Encounter type: initial encounter Qualified Code(s): S72.001A - Fracture of unspecified part of neck of right femur, initial encounter for closed fracture Is this a current diagnosis for this admission?: Yes Plan: The patient once again declined physical therapy. We need to sit down and discuss this further tomorrow. I was not aware that he had refused at the time of my visit. I will try to get back and talk to him this evening. We may need to get in touch with family members. Certainly he cannot go to rehabilitation if he does not get up and work with therapy. (2) Paroxysmal atrial fibrillation Is this a current diagnosis for this admission?: Yes Plan: Currently in a sinus rhythm and rate controlled. Continue amiodarone and Eliquis for anticoagulation (3) Chronic combined systolic and diastolic congestive heart failure Is this a current diagnosis for this admission?: Yes Plan: He does not appear to be acutely volume overloaded. He is euvolemic (4) Chronic kidney disease Is this a current diagnosis for this admission?: Yes Plan: Stable (5) Diabetes mellitus Is this a current diagnosis for this admission?: Yes Plan: Adequately controlled (6) Coronary artery disease Qualifiers: Coronary Disease-Associated Artery/Lesion type: [place] artery [place] vs. transplanted heart: [place] heart Associated angina: angina presence unspecified Qualified Code(s): I25.10 - Atherosclerotic heart disease of [place] coronary artery without angina pectoris Is this a current diagnosis for this admission?: Yes Plan: Continue home regimen (7) COPD (chronic obstructive pulmonary disease) Is this a current diagnosis for this admission?: Yes Plan: No evidence of exacerbation (8) Chronic respiratory failure Is this a current diagnosis for this admission?: Yes Plan: He is at his baseline oxygen requirement (9) Anemia Is this a current diagnosis for this admission?: Yes Plan: He has an anemia of chronic disease at baseline. He had a precipitous drop in his hemoglobin secondary to acute during surgery. He has underwent transfusion and currently his hemoglobin is stable. - Time Time Spent with patient: 25-34 minutes - Inpatient Certification Medical Necessity: Other - Inpatient hospitalization remains necessary. I am going to try to go back and discussed with the patient this afternoon or early in the morning the need to work with physical therapy. If he does not work we may need to talk to the family about goals of care. He may need to transition to palliative care and possible hospice.
[2017-09-20] MEDS: INSULIN GLARGINE,HUM.REC.ANLOG 300 UNIT/3 ML INSULN.PEN SUBCUT SCH (18:18)
[2017-09-20] MEDS: CYCLOBENZAPRINE HCL 10 MG TABLET PO PRN (22:00)
[2017-09-20] MEDS: ATORVASTATIN CALCIUM 80 MG TABLET PO SCH (22:00)
[2017-09-20] MEDS: MIRTAZAPINE 15 MG TABLET PO SCH (22:00)
[2017-09-21] MEDS: OXYCODONE-ACETAMINOPHEN 5-325 MG TABLET PO PRN (02:36)
[2017-09-21 05:41] LABS: ABSOLUTE BASOPHILS # (AUTO) 0.1 10^3/uL (0.0-0.2); ABSOLUTE EOSINOPHILS # (AUTO) 0.2 10^3/uL (0.0-0.6); ABSOLUTE MONOCYTES (AUTO) 0.8 10^3/uL (0.1-1.4); ABSOLUTE NEUT (AUTO) 6.4 10^3/uL (1.7-8.2); BASOPHILS % (AUTO) 0.9 % (0-2); EOSINOPHILS % (AUTO) 2.5 % (0-6); HEMATOCRIT 36.1 % (37.9-51.0); HEMOGLOBIN 11.7 g/dL (13.5-17.0); LYMPHOCYTES % (AUTO) 11.5 % (13-45); MEAN CORPUSCULAR HEMOGLOBIN 29.7 pg (27.0-33.4); MEAN CORPUSCULAR HGB CONC 32.6 g/dL (32.0-36.0); MEAN CORPUSCULAR VOLUME 91 fl (80-97); MONOCYTES % (AUTO) 9.7 % (3-13); PLATELET COUNT 211 10^3/uL (150-450); RED BLOOD COUNT 3.96 10^6/uL (4.35-5.55); SEGMENTED NEUTROPHILS % (AUTO) 75.4 % (42-78); TOTAL CELLS COUNTED % (AUTO) 100 %; WHITE BLOOD COUNT 8.4 10^3/uL (4.0-10.5)
[2017-09-21 06:06] LABS: ANION GAP 9 (5-19); BLOOD UREA NITROGEN 28 mg/dL (7-20); CALCIUM 8.4 mg/dL (8.4-10.2); CARBON DIOXIDE 27 mmol/L (22-30); CHLORIDE 102 mmol/L (98-107); GLUCOSE 213 mg/dL (75-110); MAGNESIUM 1.9 mg/dL (1.6-2.3); POTASSIUM 4.7 mmol/L (3.6-5.0); SODIUM 137.9 mmol/L (137-145)
[2017-09-21] MEDS: APIXABAN 5 MG TABLET PO SCH ×2 (10:06→17:33)
[2017-09-21] MEDS: ISOSORBIDE MONONITRATE 30 MG TAB.ER.24H PO SCH (10:06)
[2017-09-21] MEDS: LIDOCAINE 5% (700 MG) TRANSDERMAL ADH..PATCH TP SCH (10:06)
[2017-09-21] MEDS: LISINOPRIL 5 MG TABLET PO SCH (10:07)
[2017-09-21] MEDS: RANOLAZINE 500 MG TAB.SR.12H PO SCH ×2 (10:17→22:35)
[2017-09-21] MEDS: MAGNESIUM OXIDE 400 MG TABLET PO SCH (10:17)
[2017-09-21] MEDS: POTASSIUM CHLORIDE 10 MEQ TABLET.SA PO SCH (10:17)
[2017-09-21] MEDS: INSULIN LISPRO 100 UNIT/ML 3 ML VIAL SUBCUT PRN ×3 (11:15→22:36)
--- NOTE | 2017-09-21 14:14 | PDOC PROGRESS REPORT ---
Subjective Progress Note for:: 09/21/17 Subjective:: The patient is a 76-year-old gentleman who presented to the emergency room with a hip fracture. He is status post repair. Initially he was refusing to work with physical therapy but is done really well the past 2 days. He currently is awaiting placement for subacute rehabilitation. Today he denies fever chills. No chest pain, shortness of breath or cough. No nausea vomiting or diarrhea. No dysuria, frequency or hematuria. He does have pain in his hip especially when he tries to work with therapy. Reason For Visit: HIP FRACTURE Physical Exam Vital Signs: Temp Pulse Resp BP Pulse Ox 97.4 F 79 16 138/62 H 94 09/21/17 11:33 09/21/17 11:33 09/21/17 11:33 09/21/17 11:33 09/21/17 13:35 Pulse Oximeter Continuous Start: 09/16/17 00: 30 Freq: RTQ4 Status: Active Document 09/21/17 13:35 [facility] [place] (Rec: 09/21/17 13:36 NSC [email or web address]) Pulse Oximetry Assessment Oxygen Saturation (92-100) 94 Oxygen Flow Rate (L/min) 3 Oxygen Delivery Method Nasal Cannula Fraction of Inspired Oxygen (FIO2) 32 Equipment Usage Equipment in Use Continuous SpO2 Machine # N 2 Additional RT Notes Other sensor repositioned over right eye area Intake & Output 09/20/17 09/21/17 09/22/17 06:59 06:59 06:59 Intake Total 1452 862 Output Total 850 625 Balance 602 237 Weight 69 kg 66.3 kg General appearance: PRESENT: no acute distress, well-developed, well-nourished Head exam: PRESENT: atraumatic, normocephalic Mouth exam: PRESENT: moist, tongue midline Respiratory exam: PRESENT: clear to auscultation [place]. ABSENT: rales, rhonchi, wheezes Cardiovascular exam: PRESENT: RRR. ABSENT: diastolic murmur, rubs, systolic murmur GI/Abdominal exam: PRESENT: normal bowel sounds, soft. ABSENT: distended, guarding, mass, organolmegaly, rebound, tenderness Rectal exam: PRESENT: deferred Extremities exam: PRESENT: full ROM. ABSENT: calf tenderness, clubbing, pedal edema Neurological exam: PRESENT: alert, awake, oriented to person, oriented to place , oriented to time, oriented to situation, CN II-XII grossly intact. ABSENT: motor sensory deficit Psychiatric exam: PRESENT: appropriate affect, normal mood. ABSENT: homicidal ideation, suicidal ideation Skin exam: PRESENT: dry, intact, warm. ABSENT: cyanosis, rash Results Laboratory Results: 09/21/17 04:43 09/21/17 04:43 09/21/17 09/21/17 04:43 04:43 WBC 8.4 RBC 3.96 L Hgb 11.7 L Hct 36.1 L MCV 91 MCH 29.7 MCHC 32.6 RDW 17.0 H Plt Count 211 Seg Neutrophils % 75.4 Lymphocytes % 11.5 L Monocytes % 9.7 Eosinophils % 2.5 Basophils % 0.9 Absolute Neutrophils 6.4 Absolute Lymphocytes 1.0 Absolute Monocytes 0.8 Absolute Eosinophils 0.2 Absolute Basophils 0.1 Sodium 137.9 Potassium 4.7 Chloride 102 Carbon Dioxide 27 Anion Gap 9 BUN 28 H Creatinine 1.17 Est GFR ( Amer) > 60 Est GFR (Non-Af Amer) > 60 Glucose 213 H Calcium 8.4 Magnesium 1.9 Impressions: Head CT 09/15/17 06:46 IMPRESSION: 1. No acute intracranial abnormality by CT criteria. This exam was performed according to our departmental dose-optimization program, which includes automated exposure control, adjustment of the mA and/or kV according to patient size and/or use of iterative reconstruction technique. Chest X-Ray 09/15/17 07:38 IMPRESSION: 1. No acute pulmonary process identified. Fluoroscopy 09/16/17 00:00 IMPRESSION: IMAGE(S) OBTAINED DURING PROCEDURE. Hip/Pelvis X-Ray 09/17/17 11:45 IMPRESSION: POSTOPERATIVE RIGHT HIP WITH HARDWARE. Assessment & Plan - Diagnosis (1) Closed right hip fracture Qualifiers: Encounter type: initial encounter Qualified Code(s): S72.001A - Fracture of unspecified part of neck of right femur, initial encounter for closed fracture Is this a current diagnosis for this admission?: Yes Plan: Currently waiting on placement for subacute rehabilitation. He did quite well with physical therapy yesterday and today. (2) Paroxysmal atrial fibrillation Is this a current diagnosis for this admission?: Yes Plan: Currently in a sinus rhythm and rate controlled. Continue amiodarone and Eliquis for anticoagulation (3) Chronic combined systolic and diastolic congestive heart failure Is this a current diagnosis for this admission?: Yes Plan: He does not appear to be acutely volume overloaded. He is euvolemic (4) Chronic kidney disease Is this a current diagnosis for this admission?: Yes Plan: Stable (5) Diabetes mellitus Is this a current diagnosis for this admission?: Yes Plan: Adequately controlled (6) Coronary artery disease Qualifiers: Coronary Disease-Associated Artery/Lesion type: [place] artery [place] vs. transplanted heart: [place] heart Associated angina: angina presence unspecified Qualified Code(s): I25.10 - Atherosclerotic heart disease of [place] coronary artery without angina pectoris Is this a current diagnosis for this admission?: Yes Plan: Continue home regimen (7) COPD (chronic obstructive pulmonary disease) Is this a current diagnosis for this admission?: Yes Plan: No evidence of exacerbation (8) Chronic respiratory failure Is this a current diagnosis for this admission?: Yes Plan: He is at his baseline oxygen requirement (9) Anemia Is this a current diagnosis for this admission?: Yes Plan: He has an anemia of chronic disease at baseline. He had a precipitous drop in his hemoglobin secondary to acute during surgery. He has underwent transfusion and currently his hemoglobin is stable. - Time Time Spent with patient: 15-24 minutes - Inpatient Certification Medical Necessity: Other - Inpatient hospitalization remains necessary for disposition. The patient will be transitioned to subacute rehab as soon as a bed is found.
[2017-09-21] MEDS: METOPROLOL SUCCINATE 25 MG TAB.SR.24H PO SCH (14:57)
[2017-09-21] MEDS: AMIODARONE HCL 200 MG TABLET PO SCH (14:57)
[2017-09-21] MEDS ORDERED: HALOPERIDOL LACTATE INJ 5 MG/1 ML VIAL IV ONE (16:00)
[2017-09-21] MEDS ORDERED: HALOPERIDOL LACTATE INJ 5 MG/1 ML VIAL ONE (16:00)
[2017-09-21] MEDS: INSULIN GLARGINE,HUM.REC.ANLOG 300 UNIT/3 ML INSULN.PEN SUBCUT SCH (17:32)
[2017-09-21] MEDS ORDERED: HALOPERIDOL 2 MG TABLET PO SCH (22:00)
[2017-09-21] MEDS: MELATONIN 5 MG TABLET PO SCH (22:36)
[2017-09-21] MEDS: ATORVASTATIN CALCIUM 80 MG TABLET PO SCH (22:36)
[2017-09-21] MEDS: MIRTAZAPINE 15 MG TABLET PO SCH (22:36)
[2017-09-22] MEDS: LORAZEPAM INJ 2 MG/1 ML VIAL IM PRN ×2 (02:54→21:28)
[2017-09-22] MEDS: ISOSORBIDE MONONITRATE 30 MG TAB.ER.24H PO SCH (10:05)
[2017-09-22] MEDS: LIDOCAINE 5% (700 MG) TRANSDERMAL ADH..PATCH TP SCH (10:05)
[2017-09-22] MEDS: LISINOPRIL 5 MG TABLET PO SCH (10:05)
[2017-09-22] MEDS: APIXABAN 5 MG TABLET PO SCH ×2 (10:05→17:24)
[2017-09-22] MEDS: MAGNESIUM OXIDE 400 MG TABLET PO SCH (10:06)
[2017-09-22] MEDS: RANOLAZINE 500 MG TAB.SR.12H PO SCH (10:06)
[2017-09-22] MEDS: POTASSIUM CHLORIDE 10 MEQ TABLET.SA PO SCH (10:06)
[2017-09-22] MEDS: INSULIN LISPRO 100 UNIT/ML 3 ML VIAL SUBCUT PRN ×3 (12:42→23:50)
[2017-09-22 15:08] LABS: APPEARANCE,URINE CLEAR; BILIRUBIN,URINE NEGATIVE (NEGATIVE); COLOR,URINE YELLOW; GLUCOSE, URINE >=500 mg/dL (NEGATIVE); KETONES,URINE 20 mg/dL (NEGATIVE); LEUKOCYTE ESTERASE,URINE NEGATIVE (NEGATIVE); NITRITE,URINE NEGATIVE (NEGATIVE); PROTEIN,URINE NEGATIVE (NEGATIVE); URINE SPECIFIC GRAVITY 1.021; UROBILINOGEN,URINE NEGATIVE mg/dL (<2.0)
--- NOTE | 2017-09-22 15:16 | PDOC PROGRESS REPORT ---
Subjective Progress Note for:: 09/22/17 Subjective:: The patient is a 76-year-old gentleman who presented to the emergency room with a hip fracture. He is status post repair. Initially he was refusing to work with physical therapy but is done really well the past 2 days. He currently is awaiting placement for subacute rehabilitation. He is still complaining of pain in his hip. He is currently on oral as well as transdermal narcotics. Reason For Visit: HIP FRACTURE Physical Exam Vital Signs: Temp Pulse Resp BP Pulse Ox 97.6 F 96 18 124/62 98 09/22/17 11:23 09/22/17 11:23 09/22/17 11:23 09/22/17 11:23 09/22/17 11:23 Pulse Oximeter Continuous Start: 09/16/17 00: 30 Freq: RTQ4 Status: Complete Document 09/21/17 13:35 NSC (Rec: 09/21/17 13:36 NSC [email or web address]) Pulse Oximetry Assessment Oxygen Saturation (92-100) 94 Oxygen Flow Rate (L/min) 3 Oxygen Delivery Method Nasal Cannula Fraction of Inspired Oxygen (FIO2) 32 Equipment Usage Equipment in Use Continuous SpO2 Machine # N 2 Additional RT Notes Other sensor repositioned over right eye area Intake & Output 09/21/17 09/22/17 09/23/17 06:59 06:59 06:59 Intake Total 862 690 Output Total 625 300 Balance 237 390 Weight 66.3 kg 64.8 kg General appearance: PRESENT: no acute distress, well-nourished - Elderly gentleman appears to be in some discomfort Head exam: PRESENT: atraumatic, normocephalic Eye exam: PRESENT: conjunctiva pink, EOMI, PERRLA. ABSENT: scleral icterus Ear exam: PRESENT: normal external ear exam Mouth exam: PRESENT: moist, tongue midline Neck exam: ABSENT: carotid bruit, JVD, lymphadenopathy, thyromegaly Respiratory exam: PRESENT: clear to auscultation [place]. ABSENT: rales, rhonchi, wheezes Cardiovascular exam: PRESENT: RRR. ABSENT: diastolic murmur, rubs, systolic murmur Pulses: PRESENT: normal dorsalis pedis pul Vascular exam: PRESENT: normal capillary refill GI/Abdominal exam: PRESENT: normal bowel sounds, soft. ABSENT: distended, guarding, mass, organolmegaly, rebound, tenderness Rectal exam: PRESENT: deferred Extremities exam: PRESENT: full ROM. ABSENT: calf tenderness, clubbing, pedal edema Musculoskeletal exam: PRESENT: other - Right hip incision appears to be intact with dilia intact and surrounding mild contusion but no drainage is seen Neurological exam: PRESENT: alert, awake, oriented to place, oriented to situation, CN II-XII grossly intact. ABSENT: motor sensory deficit Psychiatric exam: PRESENT: appropriate affect, normal mood. ABSENT: homicidal ideation, suicidal ideation Skin exam: PRESENT: dry, intact, warm. ABSENT: cyanosis, rash Results Laboratory Results: 09/21/17 04:43 09/21/17 04:43 Impressions: Head CT 09/15/17 06:46 IMPRESSION: 1. No acute intracranial abnormality by CT criteria. This exam was performed according to our departmental dose-optimization program, which includes automated exposure control, adjustment of the mA and/or kV according to patient size and/or use of iterative reconstruction technique. Chest X-Ray 09/15/17 07:38 IMPRESSION: 1. No acute pulmonary process identified. Fluoroscopy 09/16/17 00:00 IMPRESSION: IMAGE(S) OBTAINED DURING PROCEDURE. Hip/Pelvis X-Ray 09/17/17 11:45 IMPRESSION: POSTOPERATIVE RIGHT HIP WITH HARDWARE. Assessment & Plan - Time Time Spent with patient: 15-24 minutes Anticipated discharge: Acute Rehab Within: within 48 hours - Plan Summary Plan Summary: Assessment and plan Closed right hip fracture currently awaiting rehabilitation. This is a current diagnosis for this admission. 2. Paroxysmal atrial fibrillation currently in sinus rhythm on amiodarone and Eliquis for anticoagulation. 3. Chronic combined systolic and diastolic congestive heart failure currently compensated. 4. Chronic kidney disease stage III stable. This is a current admission diagnoses 5. Type 2 diabetes mellitus controlled. This is a current admission diagnosis 6. Coronary artery disease stable this is compensated 7. COPD compensated with no acute exacerbation 8. Chronic respiratory failure on oxygen requirement Patient is currently awaiting transfer to rehabilitation once bed available and is medically stable.
[2017-09-22] MEDS: METOPROLOL SUCCINATE 25 MG TAB.SR.24H PO SCH (17:24)
[2017-09-22] MEDS: AMIODARONE HCL 200 MG TABLET PO SCH (17:24)
[2017-09-22] MEDS: INSULIN GLARGINE,HUM.REC.ANLOG 300 UNIT/3 ML INSULN.PEN SUBCUT SCH (17:24)
[2017-09-22] MEDS: ATORVASTATIN CALCIUM 80 MG TABLET PO SCH (23:36)
[2017-09-22] MEDS: MELATONIN 5 MG TABLET PO SCH (23:36)
[2017-09-23] MEDS: MIRTAZAPINE 15 MG TABLET PO SCH ×2 (00:49→22:21)
[2017-09-23] MEDS: RANOLAZINE 500 MG TAB.SR.12H PO SCH ×3 (00:49→22:21)
[2017-09-23] MEDS: INSULIN LISPRO 100 UNIT/ML 3 ML VIAL SUBCUT PRN ×4 (10:00→23:49)
[2017-09-23] MEDS: LISINOPRIL 5 MG TABLET PO SCH (10:29)
[2017-09-23] MEDS: ISOSORBIDE MONONITRATE 30 MG TAB.ER.24H PO SCH (10:29)
[2017-09-23] MEDS: APIXABAN 5 MG TABLET PO SCH ×2 (10:29→18:05)
[2017-09-23] MEDS: MAGNESIUM OXIDE 400 MG TABLET PO SCH (10:29)
[2017-09-23] MEDS: POTASSIUM CHLORIDE 10 MEQ TABLET.SA PO SCH (10:29)
[2017-09-23] MEDS: LIDOCAINE 5% (700 MG) TRANSDERMAL ADH..PATCH TP SCH (10:29)
[2017-09-23] MEDS ORDERED: INSULIN GLARGINE,HUM.REC.ANLOG 1,000 UNIT/10 ML UNIT SUBCUT ONE (10:53)
--- NOTE | 2017-09-23 10:53 | PDOC PROGRESS REPORT ---
Subjective Progress Note for:: 09/23/17 Subjective:: The patient is a 76-year-old gentleman who presented to the emergency room with a hip fracture. He is status post repair. Initially he was refusing to work with physical therapy but is done really well the past 2 days. He currently is awaiting placement for subacute rehabilitation. He is still complaining of pain in his hip. He is currently on oral as well as transdermal narcotics. Reason For Visit: HIP FRACTURE Physical Exam Vital Signs: Temp Pulse Resp BP Pulse Ox 97.5 F 97 20 159/66 H 95 09/23/17 08:55 09/23/17 08:55 09/23/17 08:55 09/23/17 08:55 09/23/17 08:55 Pulse Oximeter Continuous Start: 09/16/17 00: 30 Freq: RTQ4 Status: Complete Document 09/21/17 13:35 [facility] (Rec: 09/21/17 13:36 [facility] [email or web address]) Pulse Oximetry Assessment Oxygen Saturation (92-100) 94 Oxygen Flow Rate (L/min) 3 Oxygen Delivery Method Nasal Cannula Fraction of Inspired Oxygen (FIO2) 32 Equipment Usage Equipment in Use Continuous SpO2 Machine # N 2 Additional RT Notes Other sensor repositioned over right eye area Intake & Output 09/22/17 09/23/17 09/24/17 06:59 06:59 06:59 Intake Total 690 250 Output Total 300 700 Balance 390 -450 Weight 64.8 kg 66.2 kg General appearance: PRESENT: no acute distress, well-developed, well-nourished Head exam: PRESENT: atraumatic, normocephalic Eye exam: PRESENT: conjunctiva pink, EOMI, PERRLA. ABSENT: scleral icterus Ear exam: PRESENT: normal external ear exam Mouth exam: PRESENT: dry mucosa, moist, tongue midline Neck exam: ABSENT: carotid bruit, JVD, lymphadenopathy, thyromegaly Respiratory exam: PRESENT: clear to auscultation [place]. ABSENT: rales, rhonchi, wheezes Cardiovascular exam: PRESENT: RRR. ABSENT: diastolic murmur, rubs, systolic murmur Pulses: PRESENT: normal dorsalis pedis pul Vascular exam: PRESENT: normal capillary refill GI/Abdominal exam: PRESENT: normal bowel sounds, soft. ABSENT: distended, guarding, mass, organolmegaly, rebound, tenderness Rectal exam: PRESENT: deferred Extremities exam: PRESENT: full ROM. ABSENT: calf tenderness, clubbing, pedal edema Neurological exam: PRESENT: alert, awake, other - Patient is confused. ABSENT: motor sensory deficit Psychiatric exam: PRESENT: other - unable to evaluate. ABSENT: homicidal ideation, suicidal ideation Skin exam: PRESENT: dry, intact, other - incision and dilia R hip intact. ABSENT: cyanosis, rash Results Laboratory Results: 09/21/17 04:43 09/21/17 04:43 09/22/17 14:36 Urine Color YELLOW Urine Appearance CLEAR Urine pH 5.0 Ur Specific [place] 1.021 Urine Protein NEGATIVE Urine Glucose (UA) >=500 H Urine Ketones 20 H Urine Blood NEGATIVE Urine Nitrite NEGATIVE Ur Leukocyte Esterase NEGATIVE Urine WBC (Auto) 2 Urine RBC (Auto) 1 Impressions: Head CT 09/15/17 06:46 IMPRESSION: 1. No acute intracranial abnormality by CT criteria. This exam was performed according to our departmental dose-optimization program, which includes automated exposure control, adjustment of the mA and/or kV according to patient size and/or use of iterative reconstruction technique. Chest X-Ray 09/15/17 07:38 IMPRESSION: 1. No acute pulmonary process identified. Fluoroscopy 09/16/17 00:00 IMPRESSION: IMAGE(S) OBTAINED DURING PROCEDURE. Hip/Pelvis X-Ray 09/17/17 11:45 IMPRESSION: POSTOPERATIVE RIGHT HIP WITH HARDWARE. Assessment & Plan - Time Time Spent with patient: 25-34 minutes Medications reviewed and adjusted accordingly: Yes Anticipated discharge: SNF Within: within 48 hours - Inpatient Certification Medical Necessity: Need For IV Fluids - Plan Summary Plan Summary: Assessment and plan This problems currently being addressed during this admission 1. Change in mental status as per the family. He maintained that he was more awake and alert prior to falling and they feel that he is more confused than usual. I see no clear evidence of any infection at this point. Urine culture done was negative. Patient does seem to be somewhat dehydrated though so I will go ahead and give him some IV fluids and will monitor him at least overnight. Will check labs in a.m. He is hemodynamically stable although his blood pressure is slightly elevated but there is no evidence of any acute cerebrovascular event. He apparently has also not been taking his medications. 2. Closed right hip fracture appears to be healing as expected. Plan is for discharge once stable. 3. Paroxysmal atrial fibrillation on amiodarone and Eliquis 4. Chronic kidney disease stage III stable 5. Chronic combined systolic and diastolic congestive heart failure currently compensated 6. Chronic kidney disease stage III stable 7. Type 2 diabetes mellitus with hypoglycemia. Will continue sliding scale and insulin and adjust as needed 8. Compensated COPD with no acute exacerbation 9. Chronic respiratory failure on oxygen. 10 I discussed with patient's family including son Ezequiel and daughter VALERIANO and explained plans and current findings to them. They voiced understanding and were satisfied with my explanation
[2017-09-23] MEDS ORDERED: INSULIN GLARGINE,HUM.REC.ANLOG 300 UNIT/3 ML INSULN.PEN SUBCUT ONE (11:15)
[2017-09-23] MEDS: ENALAPRILAT DIHYDRATE INJ/PF 2.5 MG/2 ML SDV IV SCH ×3 (12:04→23:49)
[2017-09-23] MEDS ORDERED: NORMAL SALINE 1000 ML 1,000 ML IV PRN (14:08)
--- NOTE | 2017-09-23 15:12 | RADIOLOGY REPORT (SQ) ---
EXAM DESCRIPTION: CT HEAD WITHOUT COMPLETED DATE/TIME: 09/23/2017 2:51 pm REASON FOR STUDY: AMS COMPARISON: 09/15/2017 TECHNIQUE: Axial images acquired through the brain without intravenous contrast. Images reviewed wi th bone, brain and subdural windows. Images stored on PACS. All CT scanners at this facility use dose modulation, iterative reconstruction, and/or weight based d osing when appropriate to reduce radiation dose to as low as reasonably achievable (ALARA). [facility]: Dose Right [facility]: CareDose [facility]: Dose Right [facility]: Teradose 4D [facility]: [employer] RADIATION DOSE: CT Rad equipment meets quality standard of care and radiation dose reduction techniq ues were employed. CTDIvol: 21.6 mGy. DLP: 389 mGy-cm. mGy. LIMITATIONS: Mild motion artifact, patient in nonstandard radiographic positioning on the scanner FINDINGS: On the images without motion artifact, there is no gross acute intracranial hemorrhage. 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 No gross skull fracture. Paranasal sinuses are clear. Bilateral mastoid air cell fluid. IMPRESSION: Very limited negative study for acute changes EVIDENCE OF ACUTE STROKE: NO. COMMENT: Quality ID # [id number]: Final reports with documentation of one or more dose reduction techniques (e.g., Automated exposure control, adjustment of the mA and/or kV according to patient size, use of iterative reconstruction technique) TECHNICAL DOCUMENTATION: JOB ID: [id number] [employer]- All Rights Reserved
[2017-09-23] MEDS: METOPROLOL SUCCINATE 25 MG TAB.SR.24H PO SCH (15:18)
[2017-09-23] MEDS: AMIODARONE HCL 200 MG TABLET PO SCH (15:19)
--- NOTE | 2017-09-23 17:59 | PDOC PROGRESS REPORT ---
Subjective Progress Note for:: 09/23/17 Subjective:: Patient is coughing has a wet cough and spitting up sputum. Discussing with the family and they are going with a CT and a chest x-ray. Pertaining to the hip complains of pain and has limited activity with physical therapy due to pain. Reason For Visit: HIP FRACTURE Physical Exam Vital Signs: Temp Pulse Resp BP Pulse Ox 36.9 C 98 20 116/43 L 95 09/23/17 12:45 09/23/17 12:45 09/23/17 12:45 09/23/17 12:45 09/23/17 12:45 Pulse Oximeter Continuous Start: 09/16/17 00: 30 Freq: RTQ4 Status: Complete Document 09/21/17 13:35 [facility] (Rec: 09/21/17 13:36 [facility] [email or web address]) Pulse Oximetry Assessment Oxygen Saturation (92-100) 94 Oxygen Flow Rate (L/min) 3 Oxygen Delivery Method Nasal Cannula Fraction of Inspired Oxygen (FIO2) 32 Equipment Usage Equipment in Use Continuous SpO2 Machine # N 2 Additional RT Notes Other sensor repositioned over right eye area Intake & Output 09/22/17 09/23/17 09/24/17 06:59 06:59 06:59 Intake Total 690 250 Output Total 300 700 Balance 390 -450 Weight 64.8 kg 66.2 kg Adult Front & Back Image: 1 - Incisions are dry clean and intact. Ecchymosis present. Tender palpation. Neurovascular intact distally. Results Laboratory Results: 09/21/17 04:43 09/21/17 04:43 Impressions: Chest X-Ray 09/15/17 07:38 IMPRESSION: 1. No acute pulmonary process identified. Fluoroscopy 09/16/17 00:00 IMPRESSION: IMAGE(S) OBTAINED DURING PROCEDURE. Hip/Pelvis X-Ray 09/17/17 11:45 IMPRESSION: POSTOPERATIVE RIGHT HIP WITH HARDWARE. Head CT 09/23/17 00:00 IMPRESSION: Very limited negative study for acute changes EVIDENCE OF ACUTE STROKE: NO. Assessment & Plan - Diagnosis (1) Closed right hip fracture Qualifiers: Encounter type: initial encounter Qualified Code(s): S72.001A - Fracture of unspecified part of neck of right femur, initial encounter for closed fracture Is this a current diagnosis for this admission?: Yes - Plan Summary Plan Summary: 76-year-old gentleman who is status post intramedullary nailing of right intertrochanteric hip fracture. Hospitalist service currently addressing his medical issues. Pertaining to the hip patient will require long-term rehab once medically stable Continue pain control and DVT prophylaxis.
--- NOTE | 2017-09-23 18:34 | RADIOLOGY REPORT (SQ) ---
EXAM DESCRIPTION: CHEST SINGLE VIEW COMPLETED DATE/TIME: 09/23/2017 6:09 pm REASON FOR STUDY: AMS, cough COMPARISON: None. EXAM PARAMETERS: NUMBER OF VIEWS: One view. TECHNIQUE: Single frontal radiographic view of the chest acquired. RADIATION DOSE: NA LIMITATIONS: Poor positioning FINDINGS: LUNGS AND PLEURA: No opacities, masses or pneumothorax. No pleural effusion. MEDIASTINUM AND HILAR STRUCTURES: No masses. Contour normal. HEART AND VASCULAR STRUCTURES: Heart normal in size. Normal vasculature. BONES: No acute findings. HARDWARE: None in the chest. OTHER: Gaseous distention of the stomach. IMPRESSION: 1. NO ACUTE RADIOGRAPHIC FINDING IN THE CHEST. 2. Gaseous distention of the stomach. TECHNICAL DOCUMENTATION: JOB ID: [id number] [employer]- All Rights Reserved
[2017-09-23 18:55] LABS: HEMOGLOBIN 10.9 g/dL (13.5-17.0); MEAN CORPUSCULAR HEMOGLOBIN 29.1 pg (27.0-33.4); MEAN CORPUSCULAR HGB CONC 32.1 g/dL (32.0-36.0); MEAN CORPUSCULAR VOLUME 91 fl (80-97); PLATELET COUNT 307 10^3/uL (150-450); RED BLOOD COUNT 3.75 10^6/uL (4.35-5.55); RED CELL DISTRIBUTION WIDTH 17.6 % (11.5-14.0)
[2017-09-23 19:02] LABS: ANION GAP 9 (5-19); BLOOD UREA NITROGEN 68 mg/dL (7-20); CALCIUM 9.2 mg/dL (8.4-10.2); CARBON DIOXIDE 27 mmol/L (22-30); CHLORIDE 104 mmol/L (98-107); GLUCOSE 318 mg/dL (75-110); POTASSIUM 4.7 mmol/L (3.6-5.0)
[2017-09-23 19:12] LABS: WHITE BLOOD COUNT 23.1 10^3/uL (4.0-10.5)
[2017-09-23 19:16] LABS: ABSOLUTE LYMPHOCYTES# (MANUAL) 0.9 10^3/uL (0.5-4.7); ABSOLUTE MONOCYTES # (MANUAL) 0.7 10^3/uL (0.1-1.4); ABSOLUTE NEUTROPHILS# (MANUAL) 21.5 10^3/uL (1.7-8.2); BAND NEUTROPHILS % (MANUAL) 2 % (3-5); BASOPHILS % (MANUAL) 0 % (0-2); EOSINOPHILS % (MANUAL) 0 % (0-6); LYMPHOCYTES % (MANUAL) 4 % (13-45); MONOCYTES % (MANUAL) 3 % (3-13); SEGMENTED NEUTROPHILS % (MAN) 91 % (42-78); TOTAL CELLS COUNTED 100
[2017-09-23 19:17] LABS: ANISOCYTOSIS 1+
[2017-09-23 19:18] LABS: HYPOCHROMASIA SLIGHT; PLATELET COMMENT ADEQUATE
[2017-09-23 19:19] LABS: BURR CELLS 1+
[2017-09-23 19:20] LABS: ACANTHOCYTES SLIGHT
[2017-09-23] MEDS ORDERED: CEFTRIAXONE INJ 1000 MG VIAL IV SCH (19:45)
[2017-09-23] MEDS ORDERED: CEFTRIAXONE SODIUM 1,000 MG in DEXTROSE 5%-WATER 50 ML IV SCH (22:00)
[2017-09-23] MEDS: ATORVASTATIN CALCIUM 80 MG TABLET PO SCH (22:21)
[2017-09-23] MEDS: MELATONIN 5 MG TABLET PO SCH (22:21)
[2017-09-23] MEDS: INSULIN GLARGINE,HUM.REC.ANLOG 300 UNIT/3 ML INSULN.PEN SUBCUT SCH (23:48)
[2017-09-24] MEDS: LORAZEPAM INJ 2 MG/1 ML VIAL IM PRN ×3 (04:51→19:20)
[2017-09-24] MEDS: ENALAPRILAT DIHYDRATE INJ/PF 2.5 MG/2 ML SDV IV SCH ×2 (06:05→13:03)
[2017-09-24 07:23] LABS: HEMATOCRIT 31.1 % (37.9-51.0); MEAN CORPUSCULAR HEMOGLOBIN 29.4 pg (27.0-33.4); MEAN CORPUSCULAR HGB CONC 32.1 g/dL (32.0-36.0); MEAN CORPUSCULAR VOLUME 92 fl (80-97); PLATELET COUNT 301 10^3/uL (150-450); RED CELL DISTRIBUTION WIDTH 18.2 % (11.5-14.0); WHITE BLOOD COUNT 22.1 10^3/uL (4.0-10.5)
[2017-09-24 07:38] LABS: ANION GAP 11 (5-19); BLOOD UREA NITROGEN 66 mg/dL (7-20); CALCIUM 8.8 mg/dL (8.4-10.2); CARBON DIOXIDE 27 mmol/L (22-30); CHLORIDE 106 mmol/L (98-107); GLUCOSE 383 mg/dL (75-110); POTASSIUM 4.8 mmol/L (3.6-5.0); SODIUM 143.8 mmol/L (137-145)
[2017-09-24 08:07] LABS: ABSOLUTE LYMPHOCYTES# (MANUAL) 0.2 10^3/uL (0.5-4.7); ABSOLUTE MONOCYTES # (MANUAL) 1.5 10^3/uL (0.1-1.4); ABSOLUTE NEUTROPHILS# (MANUAL) 20.3 10^3/uL (1.7-8.2); BAND NEUTROPHILS % (MANUAL) 1 % (3-5); BASOPHILS % (MANUAL) 0 % (0-2); EOSINOPHILS % (MANUAL) 0 % (0-6); LYMPHOCYTES % (MANUAL) 1 % (13-45); MONOCYTES % (MANUAL) 7 % (3-13); SEGMENTED NEUTROPHILS % (MAN) 91 % (42-78); TOTAL CELLS COUNTED 100
[2017-09-24 08:08] LABS: TOXIC GRANULATION 1+
[2017-09-24 08:09] LABS: ANISOCYTOSIS 1+; BURR CELLS SLIGHT; OVALOCYTES 1+; PLATELET COMMENT ADEQUATE; POIKILOCYTOSIS 1+; POLYCHROMASIA SLIGHT
[2017-09-24] MEDS: INSULIN LISPRO 100 UNIT/ML 3 ML VIAL SUBCUT PRN (08:30)
[2017-09-24] MEDS: LIDOCAINE 5% (700 MG) TRANSDERMAL ADH..PATCH TP SCH (10:45)
[2017-09-24] MEDS: APIXABAN 5 MG TABLET PO SCH (10:46)
[2017-09-24] MEDS: MAGNESIUM OXIDE 400 MG TABLET PO SCH (10:46)
[2017-09-24] MEDS: INSULIN GLARGINE,HUM.REC.ANLOG 300 UNIT/3 ML INSULN.PEN SUBCUT SCH (10:46)
[2017-09-24] MEDS: OXYCODONE-ACETAMINOPHEN 5-325 MG TABLET PO PRN (10:46)
[2017-09-24] MEDS: RANOLAZINE 500 MG TAB.SR.12H PO SCH (10:46)
[2017-09-24] MEDS: ISOSORBIDE MONONITRATE 30 MG TAB.ER.24H PO SCH (10:47)
--- NOTE | 2017-09-24 12:17 | RADIOLOGY REPORT (SQ) ---
EXAM DESCRIPTION: KUB/ABDOMEN (SINGLE VIEW) COMPLETED DATE/TIME: 09/24/2017 12:01 pm REASON FOR STUDY: Pain/Vomiting COMPARISON: Right hip films 09/17/2017, 09/15/2017 Chest films 09/15/2017, 09/23/2017 NUMBER OF VIEWS: One view. TECHNIQUE: Supine radiographic image of the abdomen acquired. LIMITATIONS: None. FINDINGS: Lucency under the right hemidiaphragm worrisome for subdiaphragmatic free air. This repor t was called to Dr. Fontenot. BOWEL GAS PATTERN: Diffuse gaseous distension of stomach small bowel and colon. Findings may represe nt an ileus CALCIFICATIONS: Calcified arterial visceral branches and abdominal aorta without calcified aneurysm SOFT TISSUES: No gross mass or suggestion of organomegaly. HARDWARE: Right hip lag screw and intramedullary nail BONES: Osteoporotic. Chronic compression deformities at L1 and L2. Right lower lateral rib fracture s may be acute OTHER: No other significant finding. IMPRESSION: Findings worrisome for free intraperitoneal air. Diffuse gaseous distension of stomach small bowel and colon suggesting an ileus COMMENT: Pertinent findings on the imaging study reported as a CRITICAL RESULT to CHRISSY Medellin MD at12:08 on 09/24/2017. Category of Critical Result: Free intraperitoneal air TECHNICAL DOCUMENTATION: JOB ID: [id number] [employer]- All Rights Reserved
[2017-09-24 12:45] VITALS: BP 139/55
[2017-09-24] MEDS: METOPROLOL SUCCINATE 25 MG TAB.SR.24H PO SCH (13:03)
[2017-09-24] MEDS: AMIODARONE HCL 200 MG TABLET PO SCH (13:03)
--- NOTE | 2017-09-24 13:52 | PDOC PROGRESS REPORT ---
Subjective Progress Note for:: 09/24/17 Subjective:: The patient is a 76-year-old gentleman who presented to the emergency room with a hip fracture. He is status post repair. Initially he was refusing to work with physical therapy but is done really well the past 2 days. He currently is awaiting placement for subacute rehabilitation. Patient started to be more confused yesterday and was agitated. He remains so today. Extensive discussion with family regarding code status and comfort care Reason For Visit: HIP FRACTURE Physical Exam Vital Signs: Temp Pulse Resp BP Pulse Ox 98.7 F 85 20 139/55 H 94 09/24/17 12:04 09/24/17 12:04 09/24/17 12:04 09/24/17 12:04 09/24/17 12:04 Pulse Oximeter Continuous Start: 09/16/17 00: 30 Freq: RTQ4 Status: Complete Document 09/21/17 13:35 [facility] (Rec: 09/21/17 13:36 [facility] [email or web address]) Pulse Oximetry Assessment Oxygen Saturation (92-100) 94 Oxygen Flow Rate (L/min) 3 Oxygen Delivery Method Nasal Cannula Fraction of Inspired Oxygen (FIO2) 32 Equipment Usage Equipment in Use Continuous SpO2 Machine # N 2 Additional RT Notes Other sensor repositioned over right eye area Intake & Output 09/23/17 09/24/17 09/25/17 06:59 06:59 06:59 Intake Total 250 3010 Output Total 700 800 Balance -450 2210 Weight 66.2 kg General appearance: PRESENT: no acute distress Head exam: PRESENT: atraumatic, normocephalic Eye exam: PRESENT: conjunctiva pink, EOMI, PERRLA. ABSENT: scleral icterus Ear exam: PRESENT: normal external ear exam Mouth exam: PRESENT: dry mucosa Neck exam: ABSENT: carotid bruit, JVD, lymphadenopathy, thyromegaly Respiratory exam: PRESENT: decreased breath sounds. ABSENT: rales, rhonchi, wheezes Cardiovascular exam: PRESENT: RRR. ABSENT: diastolic murmur, rubs, systolic murmur Pulses: PRESENT: normal dorsalis pedis pul Vascular exam: PRESENT: normal capillary refill GI/Abdominal exam: PRESENT: distended, guarding, mass, normal bowel sounds, soft. ABSENT: rebound, tenderness Rectal exam: PRESENT: deferred Extremities exam: PRESENT: full ROM. ABSENT: calf tenderness, clubbing, pedal edema Neurological exam: PRESENT: alert, awake. ABSENT: motor sensory deficit Psychiatric exam: PRESENT: homicidal ideation, normal mood Skin exam: PRESENT: rash, warm. ABSENT: cyanosis Results Laboratory Results: 09/24/17 06:45 09/24/17 06:45 09/23/17 09/23/17 09/24/17 18:30 18:30 06:45 WBC 23.1 H D 22.1 H RBC 3.75 L 3.40 L Hgb 10.9 L 10.0 L Hct 34.0 L 31.1 L MCV 91 92 MCH 29.1 29.4 MCHC 32.1 32.1 RDW 17.6 H 18.2 H Plt Count 307 301 Seg Neutrophils % Not Reportable Not Reportable Lymphocytes % Not Reportable Not Reportable Monocytes % Not Reportable Not Reportable Eosinophils % Not Reportable Not Reportable Basophils % Not Reportable Not Reportable Absolute Neutrophils Not Reportable Not Reportable Absolute Lymphocytes Not Reportable Not Reportable Absolute Monocytes Not Reportable Not Reportable Absolute Eosinophils Not Reportable Not Reportable Absolute Basophils Not Reportable Not Reportable Sodium 140.0 Potassium 4.7 Chloride 104 Carbon Dioxide 27 Anion Gap 9 BUN 68 H Creatinine 1.29 H Est GFR ( Amer) > 60 Est GFR (Non-Af Amer) 54 L Glucose 318 H Calcium 9.2 09/24/17 06:45 WBC RBC Hgb Hct MCV MCH MCHC RDW Plt Count Seg Neutrophils % Lymphocytes % Monocytes % Eosinophils % Basophils % Absolute Neutrophils Absolute Lymphocytes Absolute Monocytes Absolute Eosinophils Absolute Basophils Sodium 143.8 Potassium 4.8 Chloride 106 Carbon Dioxide 27 Anion Gap 11 BUN 66 H Creatinine 1.27 H Est GFR ( Amer) > 60 Est GFR (Non-Af Amer) 55 L Glucose 383 H Calcium 8.8 09/22/17 14:36 Catheterized Urine Urine Culture - Final NO GROWTH 2 DAYS Impressions: Fluoroscopy 09/16/17 00:00 IMPRESSION: IMAGE(S) OBTAINED DURING PROCEDURE. Hip/Pelvis X-Ray 09/17/17 11:45 IMPRESSION: POSTOPERATIVE RIGHT HIP WITH HARDWARE. Chest X-Ray 09/23/17 00:00 IMPRESSION: 1. NO ACUTE RADIOGRAPHIC FINDING IN THE CHEST. 2. Gaseous distention of the stomach. Head CT 09/23/17 00:00 IMPRESSION: Very limited negative study for acute changes EVIDENCE OF ACUTE STROKE: NO. KUB X-Ray 09/24/17 00:00 IMPRESSION: Findings worrisome for free intraperitoneal air. Diffuse gaseous distension of stomach small bowel and colon suggesting an ileus Assessment & Plan - Inpatient Certification Medical Necessity: Other - Arrangement for NH with hospice care - Plan Summary Plan Summary: Assessment and plan These problems currently being addressed during this admission 1. Altered mental status with questionable source of infection. Chest x-ray has been negative as well as a UA and CT scan of the head. Patient's white count did jump up to 23,000 and KUB done today reveals possible free air. The plan was to obtain a CT of the abdomen however at this point I discussed with the family and they will updated on his condition. Has decided to change the patient to comfort care only and to stop all interventions except for palliative care. They want him to move to a intermediate hospice as soon as possible. Patient has been made comfort care as per their wishes. employee services manager will be consulted to help facilitate transfer to hospice. All his active medications have been discontinued except for comfort care as appropriate. 2. Closed right hip fracture appears to be healing as expected. 3. Paroxysmal atrial fibrillation 4. Chronic kidney disease stage III stable 5. Chronic combined systolic and diastolic congestive heart failure currently compensated 6. Chronic kidney disease stage III stable 7. Type 2 diabetes mellitus with hypoglycemia. Will continue sliding scale and insulin and adjust as needed 8. Compensated COPD with no acute exacerbation 9. Chronic respiratory failure on oxygen. 10 possible perforated viscus with free air. #11 patient's condition is poor and prognosis is dismal
[2017-09-24] MEDS: MORPHINE SULFATE 10 MG/5 ML ORAL SOLUTION UDCUP PO PRN (17:00)
--- NOTE | 2017-09-24 17:21 | PDOC PROGRESS REPORT ---
Subjective Progress Note for:: 09/24/17 Subjective:: Patient resting in bed confused and agitated. Family is present and around him watching him. They have made me aware that the patient has been made comfort care and will await transfer to [facility] for hospice. Reason For Visit: HIP FRACTURE Physical Exam Vital Signs: Temp Pulse Resp BP Pulse Ox 37.1 C 85 20 139/55 H 94 09/24/17 12:04 09/24/17 12:04 09/24/17 12:04 09/24/17 12:04 09/24/17 12:04 Pulse Oximeter Continuous Start: 09/16/17 00: 30 Freq: RTQ4 Status: Complete Document 09/21/17 13:35 [facility] (Rec: 09/21/17 13:36 [facility] [email or web address]) Pulse Oximetry Assessment Oxygen Saturation (92-100) 94 Oxygen Flow Rate (L/min) 3 Oxygen Delivery Method Nasal Cannula Fraction of Inspired Oxygen (FIO2) 32 Equipment Usage Equipment in Use Continuous SpO2 Machine # N 2 Additional RT Notes Other sensor repositioned over right eye area Intake & Output 09/23/17 09/24/17 09/25/17 06:59 06:59 06:59 Intake Total 250 3010 Output Total 700 800 Balance -450 2210 Weight 66.2 kg Adult Front & Back Image: 1 - Dressings have been removed. Incisions are healing and the dilia are dry clean and intact. Ecchymosis present throughout the right lower extremity but resolving. Results Laboratory Results: 09/24/17 06:45 09/24/17 06:45 09/23/17 09/23/17 09/24/17 18:30 18:30 06:45 WBC 23.1 H D 22.1 H RBC 3.75 L 3.40 L Hgb 10.9 L 10.0 L Hct 34.0 L 31.1 L MCV 91 92 MCH 29.1 29.4 MCHC 32.1 32.1 RDW 17.6 H 18.2 H Plt Count 307 301 Seg Neutrophils % Not Reportable Not Reportable Lymphocytes % Not Reportable Not Reportable Monocytes % Not Reportable Not Reportable Eosinophils % Not Reportable Not Reportable Basophils % Not Reportable Not Reportable Absolute Neutrophils Not Reportable Not Reportable Absolute Lymphocytes Not Reportable Not Reportable Absolute Monocytes Not Reportable Not Reportable Absolute Eosinophils Not Reportable Not Reportable Absolute Basophils Not Reportable Not Reportable Sodium 140.0 Potassium 4.7 Chloride 104 Carbon Dioxide 27 Anion Gap 9 BUN 68 H Creatinine 1.29 H Est GFR ( Amer) > 60 Est GFR (Non-Af Amer) 54 L Glucose 318 H Calcium 9.2 09/24/17 06:45 WBC RBC Hgb Hct MCV MCH MCHC RDW Plt Count Seg Neutrophils % Lymphocytes % Monocytes % Eosinophils % Basophils % Absolute Neutrophils Absolute Lymphocytes Absolute Monocytes Absolute Eosinophils Absolute Basophils Sodium 143.8 Potassium 4.8 Chloride 106 Carbon Dioxide 27 Anion Gap 11 BUN 66 H Creatinine 1.27 H Est GFR ( Amer) > 60 Est GFR (Non-Af Amer) 55 L Glucose 383 H Calcium 8.8 09/22/17 14:36 Catheterized Urine Urine Culture - Final NO GROWTH 2 DAYS Impressions: Fluoroscopy 09/16/17 00:00 IMPRESSION: IMAGE(S) OBTAINED DURING PROCEDURE. Hip/Pelvis X-Ray 09/17/17 11:45 IMPRESSION: POSTOPERATIVE RIGHT HIP WITH HARDWARE. Chest X-Ray 09/23/17 00:00 IMPRESSION: 1. NO ACUTE RADIOGRAPHIC FINDING IN THE CHEST. 2. Gaseous distention of the stomach. Head CT 09/23/17 00:00 IMPRESSION: Very limited negative study for acute changes EVIDENCE OF ACUTE STROKE: NO. KUB X-Ray 09/24/17 00:00 IMPRESSION: Findings worrisome for free intraperitoneal air. Diffuse gaseous distension of stomach small bowel and colon suggesting an ileus Assessment & Plan - Diagnosis (1) Closed right hip fracture Qualifiers: Encounter type: initial encounter Qualified Code(s): S72.001A - Fracture of unspecified part of neck of right femur, initial encounter for closed fracture Is this a current diagnosis for this admission?: Yes - Plan Summary Plan Summary: 76-year-old gentleman who status post intramedullary nailing of the right hip fracture. Patient has been made comfort care At this point patient awaiting transfer and will sign off.
[2017-09-25] MEDS: MORPHINE SULFATE 10 MG/ML INJ IV PRN ×2 (00:01→11:15)
[2017-09-25] MEDS: LORAZEPAM INJ 2 MG/1 ML VIAL IM PRN ×2 (07:20→11:15)
[2017-09-25] MEDS: MORPHINE SULFATE 10 MG/5 ML ORAL SOLUTION UDCUP PO PRN (11:15)
--- NOTE | 2017-09-25 11:18 | PDOC DISCHARGE SUMMARY ---
General - Admit/Disc Date/PCP Admission Date/Primary Care Provider: 09/15/17 09:43 LINNEA CONTRERAS MD Discharge Date: 09/25/17 - Discharge Diagnosis (1) Closed right hip fracture Is this a current diagnosis for this admission?: Yes (5) Anemia Is this a current diagnosis for this admission?: Yes (6) COPD (chronic obstructive pulmonary disease) Is this a current diagnosis for this admission?: Yes (7) Cardiomyopathy Is this a current diagnosis for this admission?: Yes (8) Chronic combined systolic and diastolic congestive heart failure Is this a current diagnosis for this admission?: Yes (9) Chronic kidney disease Is this a current diagnosis for this admission?: Yes (10) Paroxysmal atrial fibrillation Is this a current diagnosis for this admission?: Yes - Additional Information Resuscitation Status: Do Not Resuscitate Discharge Diet: As Tolerated Discharge Activity: Bedrest Prescriptions: Morphine Sulfate 1 mg SUBCUT Q1HP PRN #10 ml PRN Reason: Lorazepam [Lorazepam Intensol] 1 mg PO Q4HP PRN #60 oral.conc PRN Reason: Home Medications: Lorazepam [Lorazepam Intensol] 1 mg PO Q4HP PRN #60 oral.conc 09/25/17 Morphine Sulfate 1 mg SUBCUT Q1HP PRN #10 ml 09/25/17 History of Present Illness Patient complains of: Right hip pain with a closed fracture of the right hip History of Present Illness: LUIS GODOY is a 76 year old male who was admitted with right hip fracture and this was repaired by orthopedic. Hospital Course Hospital Course: Patient was admitted with a closed right hip fracture and subsequently underwent an intramedullary nailing of the right hip. He does have several comorbidities including atrial fibrillation, coronary artery disease with cardiomyopathy, type 2 diabetes mellitus and chronic kidney disease. Patient was actually relatively stable postoperatively however he was awaiting discharge to rehabilitation. Just a few days ago he became obtunded and workup results patient probably having a perforated viscus. At this point however family decided not to pursue any more interventions and decided to make the patient comfort care and so at this point patient is being treated for palliative care only. All his other medications have been discontinued and is only receiving morphine and Ativan as well as oxygen as needed. Physical Exam Vital Signs: Temp Pulse Resp BP Pulse Ox 98.7 F 85 20 139/55 H 96 09/24/17 12:04 09/24/17 12:04 09/24/17 12:04 09/24/17 12:04 09/25/17 09:18 Pulse Oximeter Continuous Start: 09/16/17 00: 30 Freq: RTQ4 Status: Complete Document 09/21/17 13:35 [facility] [place] (Rec: 09/21/17 13:36 [facility] [place] [email or web address]) Pulse Oximetry Assessment Oxygen Saturation (92-100) 94 Oxygen Flow Rate (L/min) 3 Oxygen Delivery Method Nasal Cannula Fraction of Inspired Oxygen (FIO2) 32 Equipment Usage Equipment in Use Continuous SpO2 Machine # N 2 Additional RT Notes Other sensor repositioned over right eye area Intake & Output 09/24/17 09/25/17 09/26/17 06:59 06:59 06:59 Intake Total 3010 525 Output Total 800 0 Balance 2210 525 General appearance: PRESENT: other - Elderly gentleman sedated but arousable Head exam: PRESENT: atraumatic Ear exam: PRESENT: normal external ear exam Mouth exam: PRESENT: dry mucosa Neck exam: ABSENT: carotid bruit, JVD, lymphadenopathy, thyromegaly Cardiovascular exam: PRESENT: RRR. ABSENT: diastolic murmur, rubs, systolic murmur Pulses: PRESENT: normal dorsalis pedis pul GI/Abdominal exam: PRESENT: tenderness - Vague generalized Rectal exam: PRESENT: deferred Musculoskeletal exam: PRESENT: other - Surrounding ecchymosis around incision site right thigh, no discharge is seen Neurological exam: PRESENT: other - Sedated and lethargic Results Laboratory Results: 09/24/17 06:45 09/24/17 06:45 09/22/17 14:36 Catheterized Urine Urine Culture - Final NO GROWTH 2 DAYS Impressions: Fluoroscopy 09/16/17 00:00 IMPRESSION: IMAGE(S) OBTAINED DURING PROCEDURE. Hip/Pelvis X-Ray 09/17/17 11:45 IMPRESSION: POSTOPERATIVE RIGHT HIP WITH HARDWARE. Chest X-Ray 09/23/17 00:00 IMPRESSION: 1. NO ACUTE RADIOGRAPHIC FINDING IN THE CHEST. 2. Gaseous distention of the stomach. Head CT 09/23/17 00:00 IMPRESSION: Very limited negative study for acute changes EVIDENCE OF ACUTE STROKE: NO. KUB X-Ray 09/24/17 00:00 IMPRESSION: Findings worrisome for free intraperitoneal air. Diffuse gaseous distension of stomach small bowel and colon suggesting an ileus Plan Discharge Plan: Other diagnosis Anemia Palliative CARE status Sepsis likely related to perforated viscus Acute on chronic respiratory failure Transfer to hospice care as per family wishes. Time Spent: Greater than 30 Minutes
== END 2017-09-25 11:57 | disposition hospice, inpatient (51) | DRG 481 ==
LOC: ER 05:58 → EH 09:43 → 4N 17:45
PROVIDERS: ADMIT Emergency Medicine; ATTEND Emergency Medicine
PROC: 0QS606Z Reposition Right Upper Femur with Intramedullary Internal Fixation Device, Open Approach (ICD-10-PCS; principal; 2017-09-16 18:30)
PROC: 30233N1 Transfusion of Nonautologous Red Blood Cells into Peripheral Vein, Percutaneous Approach (ICD-10-PCS; 2017-09-18)
DX: S72.141A Displaced intertrochanteric fracture of right femur, initial encounter for closed fracture (principal); D62 Acute posthemorrhagic anemia; I50.42 Chronic combined systolic (congestive) and diastolic (congestive) heart failure; J96.10 Chronic respiratory failure, unspecified whether with hypoxia or hypercapnia; I13.0 Hypertensive heart and chronic kidney disease with heart failure and stage 1 through stage 4 chronic kidney disease, or unspecified chronic kidney disease; I25.5 Ischemic cardiomyopathy; W18.30XA Fall on same level, unspecified, initial encounter; I48.0 Paroxysmal atrial fibrillation; I25.10 Atherosclerotic heart disease of native coronary artery without angina pectoris; N18.3 Chronic kidney disease, stage 3 (moderate); Y92.009 Unspecified place in unspecified non-institutional (private) residence as the place of occurrence of the external cause; J44.9 Chronic obstructive pulmonary disease, unspecified; F03.90 Unspecified dementia, unspecified severity, without behavioral disturbance, psychotic disturbance, mood disturbance, and anxiety; Z66 Do not resuscitate; E11.649 Type 2 diabetes mellitus with hypoglycemia without coma; E11.22 Type 2 diabetes mellitus with diabetic chronic kidney disease; D63.1 Anemia in chronic kidney disease; E86.0 Dehydration; Z51.5 Encounter for palliative care; Z87.81 Personal history of (healed) traumatic fracture; I25.2 Old myocardial infarction; Z91.81 History of falling; Z79.02 Long term (current) use of antithrombotics/antiplatelets; Z78.1 Physical restraint status; Z79.4 Long term (current) use of insulin; Z79.899 Other long term (current) drug therapy; Z87.891 Personal history of nicotine dependence; Z82.49 Family history of ischemic heart disease and other diseases of the circulatory system; R41.0 Disorientation, unspecified; T40.605A Adverse effect of unspecified narcotics, initial encounter; Y92.239 Unspecified place in hospital as the place of occurrence of the external cause
CPT/HCPCS: 01230; 36415; 36430; 70450; 71045; 74018; 80048; 80053; 81001; 82550; 82962; 83735; 85025; 85027; 85610; 85730; 86850; 86900; 86901; 86920; 87086; 93005; 93010; 94762; 94799; 96374; 99284; C1713; G8978-GP; G8979-GP; G8987-GO; G8988-GO; G8989-GO; J0690; J0696; J1170; J1644; J1815; J2060; J2250; J2270; J2704; J3010; J3490; J7030; P9016